=== PATIENT | female | born 1950 | race Caucasian/White ===

== ENCOUNTER 2016-12-04 12:02 | Emergency (ER) | payer MEDICARE, OTHER ==
[~2016-12-04] VITALS: Ht 157.5 cm; Wt 88.0 kg
[~2016-12-04 12:02] MED LIST: ACETAMIN-HYDROcod 325-5 MG PO; CARV3.125 PO; GABA300 PO; LEVO.025 PO; LISI10 PO; SERO50TA PO; SYMB160A INH; TENO300 PO; VALP250C PO
[2016-12-04 12:05] VITALS: BP 146/87; PULSE 92; RESP 15; TEMP 98.1; O2SAT 97
--- NOTE | 2016-12-04 14:15 | PD ---
HPI Chief Complaint: GI Complaint Time Seen by Provider: 14:15 Travel History International Travel<30 days: No Contact w/Intl Traveler<30days: No Traveled to known affect area: No History of Present Illness HPI 66-year-old female presents the emergency department with worsening right upper quadrant pain and tenderness which she states it's been present for the past month. Patient states in the last 3 days she's had increased pain with radiation to the back, nausea, vomiting, and diarrhea. Patient denies shortness of breath or chest pain. Patient states a cholecystectomy approximately one year ago for gallbladder disease. Patient states a history of hepatitis B, but denies smoking or EtOH or substance abuse. Patient denies urinary symptoms at this time. Patient has a history of hyperkalemia and CHF. Patient states her pain is a 9/10, and worse with movement. Patient states her vomiting started 3 days ago and she last vomited this morning. Patient has no known drug allergies. PFSH Past Medical History Arthritis: Yes Bipolar Disorder: Yes Anxiety: No Depression: Yes Cancer: No Cardiovascular Problems: Yes (CHF, HTN ) Congestive Heart Failure: Yes COPD: Yes Cerebrovascular Accident: Yes Diabetes: No Diminished Hearing: No Genitourinary: No Hepatitis: Yes (b) Hypertension: Yes Implanted Vascular Access Dvce: No Musculoskeletal: Yes Neurologic: No Psychiatric: Yes (bipolar) Reproductive: No Respiratory: Yes Immunizations Current: Yes Thyroid Disease: Yes (hypo) ?: Not Menopausal: Yes : 2 Para: 2 Tubal Ligation: Yes Past Surgical History Abdominal Surgery: No Cardiac Surgery: No Section: No Ear Surgery: No Endocrine Surgery: No Eye Surgery: No Genitourinary Surgery: No Gynecologic Surgery: Yes Joint Replacement: Yes Neurologic Surgery: No Oral Surgery: Yes (teeth pulled) Thoracic Surgery: No Other Surgery: Yes Social History Alcohol Use: No Tobacco Use: Yes Substance Use: No Allergies-Medications (Allergen,Severity, Reaction): Coded Allergies: No Known Allergies (Unverified , 07/20/16) Reported Meds & Prescriptions Reported Meds & Active Scripts Active Reported Spironolactone 25 Mg Tab 12.5 Mg PO DAILY Viread (Tenofovir Disoproxil Fumarate) 300 Mg Tab 300 Mg PO DAILY Bupropion HCl 75 Mg Tab 150 Mg PO BID Gabapentin 300 Mg Cap 300 Mg PO TID Lisinopril 2.5 Mg Tab 2.5 Mg PO DAILY Seroquel (Quetiapine Fumarate) 50 Mg Tab 50 Mg PO HS Valproic Acid 250 Mg Cap 250 Mg PO BID Levothyroxine (Levothyroxine Sodium) 25 Mcg Tab 25 Mcg PO DAILY Coreg (Carvedilol) 3.125 Mg Tab 3.125 Mg PO BID Review of Systems Except as stated in HPI: all other systems reviewed are Neg General / Constitutional: No: Fever, Chills Eyes: No: Visual changes HENT: No: Headaches Cardiovascular: No: Chest Pain or Discomfort Respiratory: No: Shortness of Breath Gastrointestinal: Positive: Nausea, Vomiting, Diarrhea, Abdominal Pain (see history present illness), Loss of Appetite, No: Hematemesis, Hematochezia, Constipation Genitourinary: No: Urgency, Frequency, Dysuria, Decreased Urinary Output Musculoskeletal: No: Pain Skin: No Rash Neurologic: No: Weakness Psychiatric: No: Depression Endocrine: No: Polydipsia Hematologic/Lymphatic: No: Easy Bruising Physical Exam Narrative GENERAL: Patient is in mild to moderate distress. She is noted to be ambulatory to the restroom without difficulty. SKIN: Warm and dry. Normal color. Normal turgor. No rash. HEAD: Atraumatic. Normocephalic. EYES: Pupils equal and round. No scleral icterus. No injection or drainage. ENT: No nasal bleeding or discharge. Mucous membranes pink and moist. Pharynx is normal. Airway is patent. NECK: Trachea midline. No JVD. CARDIOVASCULAR: Regular rate and rhythm. No murmurs gallops or rubs this time. RESPIRATORY: No accessory muscle use. Clear to auscultation. Breath sounds equal bilaterally. GASTROINTESTINAL: Abdomen soft, moderate guarding to the right upper quadrant with tenderness with palpation and percussion, nondistended. Hepatic and splenic margins not palpable. Patient is mild to moderate right CVA tenderness with percussion. MUSCULOSKELETAL: Extremities without clubbing, cyanosis, or edema. No obvious deformities. NEUROLOGICAL: Awake and alert. No obvious cranial nerve deficits. Motor grossly within normal limits. Five out of 5 muscle strength in the arms and legs. Normal speech. PSYCHIATRIC: Appropriate mood and affect; insight and judgment normal. Data Data Last Documented VS Vital Signs Date Time Temp Pulse Resp B/P Pulse Ox O2 Delivery O2 Flow Rate FiO2 12/04/16 17:27 78 18 152/93 100 12/04/16 14:46 Nasal Cannula 2 12/04/16 12:05 98.1 Orders Complete Blood Count With Diff (12/04/16 14:28) Comprehensive Metabolic Panel (12/04/16 14:28) Lipase (12/04/16 14:28) Lactic Acid (12/04/16 14:28) Prothrombin Time / Inr (Pt) (12/04/16 14:28) Act Partial Throm Time (Ptt) (12/04/16 14:28) Urinalysis - C+S If Indicated (12/04/16 14:28) Ct Abd/Pel W Iv Contrast(Rout) (12/04/16 14:28) Iv Access Insert/Monitor (12/04/16 14:28) Ecg Monitoring (12/04/16 14:28) Oximetry (12/04/16 14:28) NPO (12/04/16 14:28) Morphine Inj (Morphine Inj) (12/04/16 14:30) Ondansetron Inj (Zofran Inj) (12/04/16 14:30) Sodium Chlor 0.9% 1000 Ml Inj (Ns 1000 M (12/04/16 14:28) Sodium Chloride 0.9% Flush (Ns Flush) (12/04/16 14:30) Electrocardiogram (12/04/16 14:28) Hydromorphone Pf Inj (Dilaudid Pf Inj) (12/04/16 17:00) Iohexol 350 Inj (Omnipaque 350 Inj) (12/04/16 17:50) Labs Laboratory Tests Test 12/04/16 12/04/16 15:07 15:10 White Blood Count 8.7 TH/MM3 Red Blood Count 3.89 MIL/MM3 Hemoglobin 11.7 GM/DL Hematocrit 37.5 % Mean Corpuscular Volume 96.3 FL Mean Corpuscular Hemoglobin 30.1 PG Mean Corpuscular Hemoglobin 31.2 % Concent Red Cell Distribution Width 14.1 % Platelet Count 223 TH/MM3 Mean Platelet Volume 7.4 FL Neutrophils (%) (Auto) 58.3 % Lymphocytes (%) (Auto) 31.5 % Monocytes (%) (Auto) 6.8 % Eosinophils (%) (Auto) 2.9 % Basophils (%) (Auto) 0.5 % Neutrophils # (Auto) 5.1 TH/MM3 Lymphocytes # (Auto) 2.7 TH/MM3 Monocytes # (Auto) 0.6 TH/MM3 Eosinophils # (Auto) 0.3 TH/MM3 Basophils # (Auto) 0.0 TH/MM3 CBC Comment DIFF FINAL Differential Comment Prothrombin Time 10.8 SEC Prothromb Time International 1.0 RATIO Ratio Activated Partial 22.4 SEC Thromboplast Time Sodium Level 140 MEQ/L Potassium Level 4.0 MEQ/L Chloride Level 108 MEQ/L Carbon Dioxide Level 24.5 MEQ/L Anion Gap 8 MEQ/L Blood Urea Nitrogen 10 MG/DL Creatinine 0.79 MG/DL Estimat Glomerular Filtration 72 ML/MIN Rate Random Glucose 100 MG/DL Lactic Acid Level 1.2 mmol/L Calcium Level 8.7 MG/DL Total Bilirubin 0.3 MG/DL Aspartate Amino Transf 16 U/L (AST/SGOT) Alanine Aminotransferase 16 U/L (ALT/SGPT) Alkaline Phosphatase 86 U/L Total Protein 6.6 GM/DL Albumin 3.2 GM/DL Lipase 188 U/L Urine Color YELLOW Urine Turbidity CLEAR Urine pH 6.5 Urine Specific [place] 1.017 Urine Protein NEG mg/dL Urine Glucose (UA) NEG mg/dL Urine Ketones NEG mg/dL Urine Occult Blood NEG Urine Nitrite NEG Urine Bilirubin NEG Urine Urobilinogen 2.0 MG/DL Urine Leukocyte Esterase NEG Urine WBC 1 /hpf Urine Squamous Epithelial 4 /hpf Cells Microscopic Urinalysis Comment CULT NOT INDICATED MDM Medical Decision Making Medical Screen Exam Complete: Yes Emergency Medical Condition: Yes Differential Diagnosis Nausea and vomiting. Diarrhea. Colitis. Hepatitis. Biliary tract disease. Pancreatitis. Narrative Course Patient is medically stable at time of exam. Labs ordered including CBC, CMP, lipase, lactic acid, PT PTT and INR, and urinalysis. IV access is obtained, patient is given 4 mg morphine IV as well as 4 mg Zofran IV, and a normal saline bolus of [address] the abdomen and pelvis with IV contrast oral contrast is ordered. EKG is ordered showing a supraventricular rhythm with a rate of 79. Left ventricular hypertrophy and ST changes are noted, but not felt to be acute per Dr. Gordon. CBC, CMP, lipase, lactic acid, PT PTT and INR, and urinalysis are all within normal limits. CT of the abdomen is also within normal limits. Patient is evaluated with Dr. Gordon, and we feel she probably is suffering from postherpetic neuralgia from previous shingles flare. Patient is felt stable to be discharged home. She'll be given a prescription for increased gabapentin 600 mg twice a day. She is given #60. Patient is to follow with her primary care physician in the next week to ensure improvement Patient may return to emergency department if worsening symptoms develop as needed. Diagnosis Primary Impression: Neuropathic pain Additional Impression: Neuralgia, postherpetic Referrals: Primary Care Physician call for appointment Patient Instructions: General Instructions, Narcotic given in the ED Additional Instructions: Patient is evaluated with Dr. Gordon, and we feel she probably is suffering from postherpetic neuralgia from previous shingles flare. Patient is felt stable to be discharged home. She'll be given a prescription for increased gabapentin 600 mg twice a day. She is given #60. Patient is to follow with her primary care physician in the next week to ensure improvement Patient may return to emergency department if worsening symptoms develop as needed. Med/Other Pt SpecificInfo: Prescription(s) given Disposition: 01 DISCHARGE HOME Condition: Stable Mando Alves Dec 04, 2016 14:15
[2016-12-04] MEDS ORDERED: SODIUM CHLOR 0.9% 1000 ML INJ 1,000 ML IV SCH (14:28)
[2016-12-04] MEDS ORDERED: SODIUM CHLORIDE 0.9% FLUSH 5 ML FLUSH IVF PRN (14:30)
[2016-12-04] MEDS ORDERED: MORPHINE SULFATE 4 MG/ML INJ IV PUSH ONE (14:30)
[2016-12-04] MEDS ORDERED: ONDANSETRON HCL 4 MG/2 ML VIAL IVP ONE (14:30)
[2016-12-04] MEDS ORDERED: LEVO25TA4 PO (14:31)
[2016-12-04] MEDS ORDERED: BUPR75TA PO (14:31)
[2016-12-04] MEDS ORDERED: SPIR25TA PO (14:31)
[2016-12-04] MEDS ORDERED: VALP250C PO (14:31)
[2016-12-04] MEDS ORDERED: SERO50TA PO (14:31)
[2016-12-04] MEDS ORDERED: VIRE300T2 PO (14:31)
[2016-12-04] MEDS ORDERED: LISI2.5T3 PO (14:31)
[2016-12-04] MEDS ORDERED: GABA300C5 PO (14:31)
[2016-12-04] MEDS ORDERED: CARV3.125 PO (14:31)
[2016-12-04 14:46] VITALS: O2SAT 97
[2016-12-04 15:28] LABS: AUTOMATED NEUTROPHIL # 5.1 TH/MM3 (1.8-7.7); BASOPHIL % 0.5 % (0.0-2.0); EOSINOPHIL # 0.3 TH/MM3 (0-0.4); EOSINOPHIL % 2.9 % (0.0-4.0); HEMATOCRIT 37.5 % (35.0-46.0); HEMO FLAGS DIFF FINAL; LYMPH % 31.5 % (9.0-44.0); LYMPHOCYTE # 2.7 TH/MM3 (1.0-4.8); MEAN CELL VOLUME 96.3 FL (80.0-100.0); MEAN CORPUSCULAR HEMOGLOBIN 30.1 PG (27.0-34.0); MEAN CORPUSCULAR HGB CONC 31.2 % (32.0-36.0); MONO % 6.8 % (0.0-8.0); NEUT % 58.3 % (16.0-70.0); PLATELET COUNT 223 TH/MM3 (150-450); RED BLOOD COUNT 3.89 MIL/MM3 (4.00-5.30); RED CELL DISTRIBUTION WIDTH 14.1 % (11.6-17.2); WHITE BLOOD COUNT 8.7 TH/MM3 (4.0-11.0)
[2016-12-04 15:32] LABS: BLOOD, URINE NEG (NEG); COMMENT (UR) CULT NOT INDICATED; CULTURE IF INDICATED CULT NOT INDICATED; GLUCOSE,URINE NEG (NEG); KETONE, URINE NEG (NEG); NITRITE,URINE NEG (NEG); PH, URINE 6.5 (5.0-8.5); SQUAMOUS EPITHELIAL CELL URINE 4 /hpf (0-5); URINE COLOR YELLOW (YELLW/STRAW)
[2016-12-04 15:36] LABS: APTT (PATIENT) 22.4 SEC (24.3-30.1); PROTHROMBIN TIME - PATIENT 10.8 SEC (9.8-11.6)
[2016-12-04 15:48] LABS: ALT (GPT) 16 U/L (10-53); ANION GAP 8 MEQ/L (5-15); AST (GOT) 16 U/L (15-37); BICARBONATE 24.5 MEQ/L (21.0-32.0); BLOOD UREA NITROGEN 10 MG/DL (7-18); CHLORIDE 108 MEQ/L (98-107); GLOMERULAR FILTRATION RATE 72 ML/MIN (>89); SODIUM (NA) 140 MEQ/L (136-145)
[2016-12-04 15:50] LABS: ALKALINE PHOSPHATASE 86 U/L (45-117); TOTAL BILIRUBIN ADULT 0.3 MG/DL (0.2-1.0)
[2016-12-04] MEDS ORDERED: HYDROmorphone HCL PF 1 MG/ML VIAL IV PUSH ONE (17:00)
[2016-12-04 17:27] VITALS: BP 152/93; PULSE 78; RESP 18; O2SAT 100
--- NOTE | 2016-12-04 17:44 | RADRPT ---
EXAM DATE/TIME: 12/04/2016 17:14 [facility] COMPARISON: CT ABDOMEN & PELVIS W/O CONTRAST, July 20, 2016, 16:55. CT LUMBAR SPINE W/O CONTRAST, July 25, 2016, 11:10. MYELOGRAM - LUMBAR SPINE, July 25, 2016, 9:56. CT ABDOMEN & PELVIS W CONTRAS T, April 30, 2016, 14:10. INDICATIONS : Abdomen pain. IV CONTRAST: 100 cc Omnipaque 350 (iohexol) IV ORAL CONTRAST: No oral contrast ingested. RADIATION DOSE: 12.64 CTDIvol (mGy) MEDICAL HISTORY : None SURGICAL HISTORY : None. ENCOUNTER: Initial ACUITY: 1 day PAIN SCALE: 5/10 LOCATION: Bilateral abdomen. TECHNIQUE: Volumetric scanning of the abdomen and pelvis was performed. Using automated exposure control and ad justment of the mA and/or kV according to patient size, radiation dose was kept as low as reasonably achievable to obtain optimal diagnostic quality images. FINDINGS: The liver appears grossly normal. Clips are seen in the right upper quadrant from prior cholecystect alicia. The spleen, pancreas, adrenal glands and kidneys appear normal. Atherosclerotic calcifications are seen throughout the arterial system. A significant aneurysm is not appreciated. The bowel is u nremarkable. Pelvic structures appear grossly intact. The anterior abdominal wall is intact. There is degenerative and postoperative change in the lumbar spine. There does appear to be some increase d density within the lower thecal sac related to prior myelogram. 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 There is some chronic interstitial change at the lung bases. There are bilateral breast implants in place that appear to have intracapsular rupture. CONCLUSION: 1. No acute intraabdominal or pelvic abnormality. 2. Extensive degenerative and postoperative change in the lumbar spine including anterior spondyloli sthesis of L5 on S1. 3. Chronic interstitial disease at the lung bases. Sunil Short MD on December 04, 2016 at 17:32 Board Certified Radiologist. This report was verified electronically.
[2016-12-04] MEDS ORDERED: IOHEXOL 350 MG/ML 10 ML VIAL (for RAD DIAG) IV ONE (17:50)
[2016-12-04] MEDS ORDERED: GABA600T PO (18:02)
--- NOTE | 2016-12-04 18:28 | PD ---
Data Data Last Documented VS Vital Signs Date Time Temp Pulse Resp B/P Pulse Ox O2 Delivery O2 Flow Rate FiO2 12/04/16 17:27 78 18 152/93 100 12/04/16 14:46 Nasal Cannula 2 12/04/16 12:05 98.1 Orders Complete Blood Count With Diff (12/04/16 14:28) Comprehensive Metabolic Panel (12/04/16 14:28) Lipase (12/04/16 14:28) Lactic Acid (12/04/16 14:28) Prothrombin Time / Inr (Pt) (12/04/16 14:28) Act Partial Throm Time (Ptt) (12/04/16 14:28) Urinalysis - C+S If Indicated (12/04/16 14:28) Ct Abd/Pel W Iv Contrast(Rout) (12/04/16 14:28) Iv Access Insert/Monitor (12/04/16 14:28) Ecg Monitoring (12/04/16 14:28) Oximetry (12/04/16 14:28) NPO (12/04/16 14:28) Morphine Inj (Morphine Inj) (12/04/16 14:30) Ondansetron Inj (Zofran Inj) (12/04/16 14:30) Sodium Chlor 0.9% 1000 Ml Inj (Ns 1000 M (12/04/16 14:28) Sodium Chloride 0.9% Flush (Ns Flush) (12/04/16 14:30) Electrocardiogram (12/04/16 14:28) Hydromorphone Pf Inj (Dilaudid Pf Inj) (12/04/16 17:00) Iohexol 350 Inj (Omnipaque 350 Inj) (12/04/16 17:50) Labs Laboratory Tests Test 12/04/16 12/04/16 15:07 15:10 White Blood Count 8.7 TH/MM3 Red Blood Count 3.89 MIL/MM3 Hemoglobin 11.7 GM/DL Hematocrit 37.5 % Mean Corpuscular Volume 96.3 FL Mean Corpuscular Hemoglobin 30.1 PG Mean Corpuscular Hemoglobin 31.2 % Concent Red Cell Distribution Width 14.1 % Platelet Count 223 TH/MM3 Mean Platelet Volume 7.4 FL Neutrophils (%) (Auto) 58.3 % Lymphocytes (%) (Auto) 31.5 % Monocytes (%) (Auto) 6.8 % Eosinophils (%) (Auto) 2.9 % Basophils (%) (Auto) 0.5 % Neutrophils # (Auto) 5.1 TH/MM3 Lymphocytes # (Auto) 2.7 TH/MM3 Monocytes # (Auto) 0.6 TH/MM3 Eosinophils # (Auto) 0.3 TH/MM3 Basophils # (Auto) 0.0 TH/MM3 CBC Comment DIFF FINAL Differential Comment Prothrombin Time 10.8 SEC Prothromb Time International 1.0 RATIO Ratio Activated Partial 22.4 SEC Thromboplast Time Sodium Level 140 MEQ/L Potassium Level 4.0 MEQ/L Chloride Level 108 MEQ/L Carbon Dioxide Level 24.5 MEQ/L Anion Gap 8 MEQ/L Blood Urea Nitrogen 10 MG/DL Creatinine 0.79 MG/DL Estimat Glomerular Filtration 72 ML/MIN Rate Random Glucose 100 MG/DL Lactic Acid Level 1.2 mmol/L Calcium Level 8.7 MG/DL Total Bilirubin 0.3 MG/DL Aspartate Amino Transf 16 U/L (AST/SGOT) Alanine Aminotransferase 16 U/L (ALT/SGPT) Alkaline Phosphatase 86 U/L Total Protein 6.6 GM/DL Albumin 3.2 GM/DL Lipase 188 U/L Urine Color YELLOW Urine Turbidity CLEAR Urine pH 6.5 Urine Specific [place] 1.017 Urine Protein NEG mg/dL Urine Glucose (UA) NEG mg/dL Urine Ketones NEG mg/dL Urine Occult Blood NEG Urine Nitrite NEG Urine Bilirubin NEG Urine Urobilinogen 2.0 MG/DL Urine Leukocyte Esterase NEG Urine WBC 1 /hpf Urine Squamous Epithelial 4 /hpf Cells Microscopic Urinalysis Comment CULT NOT INDICATED MDM Supervised Visit with MAGNO: Yes Narrative Course The history, exam, and medical decision-making in the associated midlevel provider note were completed with my assistance. I reviewed and agree with the findings presented. I attest that I had a [id number] encounter with the patient on the same day, and personally performed and documented my assessment and findings in the medical record. *My assessment and Findings: This is a 66-year-old female who has had a cholecystectomy as well as zoster involving the right upper quadrant recently who presents to the emergency department with persistent right upper quadrant abdominal pain ever since her surgery associated with some intermittent nausea, vomiting and loose stools. She is very well-appearing, nontoxic with reassuring labs and CT scan. I'm not sure what's causing the patient's pain but it does not appear to have a surgical etiology, and she may have postherpetic neuralgia. Her symptoms seem to be alleviated by an increased dose of gabapentin. Plan for 600 twice a day of gabapentin and the patient is going to follow-up with her primary care physician later in the week. Diagnosis Primary Impression: Neuropathic pain Additional Impression: Neuralgia, postherpetic Referrals: Primary Care Physician call for appointment Patient Instructions: General Instructions, Narcotic given in the ED Additional Instruction: Patient is evaluated with Dr. Gordon, and we feel she probably is suffering from postherpetic neuralgia from previous shingles flare. Patient is felt stable to be discharged home. She'll be given a prescription for increased gabapentin 600 mg twice a day. She is given #60. Patient is to follow with her primary care physician in the next week to ensure improvement Patient may return to emergency department if worsening symptoms develop as needed. Scripts Gabapentin 600 Mg Dix480 Mg PO BID #60 TAB Ref 0 Prov:Teressa Gordon MD 12/04/16 Disposition: 01 DISCHARGE HOME Condition: Stable Teressa Gordon MD Dec 04, 2016 18:28
--- NOTE | 2016-12-05 18:56 | EKG ---
Date Performed: 12/04/2016 Time Performed: 14:43:31 PTAGE: 66 years EKG: SUPRAVENTRICULAR RHYTHM BORDERLINE LEFT AXIS DEVIATION LEFT VENTRICULAR HYPERTROPHY AND ST- T CHANGE When compared to prior tracing 1 degree AV block and PVC's continue. no significant change. ABNORMAL ECG PREVIOUS TRACING : 07/20/2016 15.57 DOCTOR: Jono Dotson Interpretating Date/Time 12/05/2016 18:55:04
== END 2016-12-04 18:50 | disposition home or self-care (01) ==
LOC: NEPE 12:02
DX: B02.29 Other postherpetic nervous system involvement (principal); R11.2 Nausea with vomiting, unspecified; R10.11 Right upper quadrant pain; I50.9 Heart failure, unspecified; I10 Essential (primary) hypertension
CPT/HCPCS: 74177; 80053; 81001; 83605; 83690; 85025; 85610; 85730; 93005; 96361; 96374; 96375; 99284; J1170; J2270; J2405; J7030; Q9967

== ENCOUNTER 2016-12-09 12:28 | Observation (INO) | payer OTHER ==
[2016-12-09] VITALS (8 sets, daily range): BP systolic 151–187; BP diastolic 79–108; PULSE 64–100; RESP 16–19; TEMP 97.5–97.9; O2SAT 92–97
[~2016-12-09] VITALS: Ht 157.5 cm; Wt 90.0 kg
[~2016-12-09 12:28] MED LIST changes: -ACETAMIN-HYDROcod 325-5 MG PO; +BUPR75TA PO; -GABA300 PO; +GABA300C5 PO; +GABA600T PO; -LEVO.025 PO; +LEVO25TA4 PO; -LISI10 PO; +LISI2.5T3 PO; +SPIR25TA PO; -SYMB160A INH; -TENO300 PO; +VIRE300T2 PO
--- NOTE | 2016-12-09 13:42 | PD ---
HPI Chief Complaint: Chest Pain Time Seen by Provider: 13:42 Travel History International Travel<30 days: No Contact w/Intl Traveler<30days: No Traveled to known affect area: No History of Present Illness HPI 66-year-old female coming in with complaints of right upper abdomen/ right lower anterior thoracic pain, as well as left arm pain since yesterday. Patient states she's felt unwell for approximately 10 days with decreased appetite. Patient has a history of CHF, shingles, cervical spondylosis, and history of DVT treated with warfarin for 6 months approximate 6 months ago. Patient has a history of irregular heartbeat for first-degree heart block. Patient is currently taking Lasix and spironolactone for her CHF. This was first treated by [facility] in [place]. Patient denies fever, chills, shortness of breath, cough, nausea, vomiting, or diarrhea. Patient has a history of hepatitis B, and has had her gallbladder out approximately a year ago. She denies changes in her bowels are urine. She describes the pain as a burning ache in her left arm as well as her right lower thorax/right upper abdomen. Patient states the pain in her left arm is worse with motion. The abdominal pain is not worsened or lessened by food. She has no edema in the lower extremities. She has no exertional dyspnea or wheezing. Patient also has a history of shingles with secondary neuropathy right flank treated with gabapentin 600 mg 3 times a day. She has no known drug allergies. PFSH Past Medical History Arthritis: Yes Bipolar Disorder: Yes Anxiety: No Depression: Yes Cancer: No Cardiovascular Problems: Yes (CHF) Congestive Heart Failure: Yes COPD: Yes Cerebrovascular Accident: Yes Diabetes: No Diminished Hearing: No Genitourinary: No Hepatitis: Yes (b) Hypertension: Yes Implanted Vascular Access Dvce: No Musculoskeletal: Yes Neurologic: No Psychiatric: Yes (bipolar) Reproductive: No Respiratory: Yes Immunizations Current: Yes Thyroid Disease: Yes (hypo) Menopausal: Yes : 2 Para: 2 Tubal Ligation: Yes Past Surgical History Abdominal Surgery: No Cardiac Surgery: No Section: No Ear Surgery: No Endocrine Surgery: No Eye Surgery: No Genitourinary Surgery: No Gynecologic Surgery: Yes Joint Replacement: Yes Neurologic Surgery: No Oral Surgery: Yes (teeth pulled) Thoracic Surgery: No Other Surgery: Yes Social History Alcohol Use: No Tobacco Use: Yes Substance Use: No Allergies-Medications (Allergen,Severity, Reaction): Coded Allergies: No Known Allergies (Unverified , 12/09/16) Reported Meds & Prescriptions Reported Meds & Active Scripts Active Reported Spironolactone 25 Mg Tab 12.5 Mg PO DAILY Viread (Tenofovir Disoproxil Fumarate) 300 Mg Tab 300 Mg PO DAILY Bupropion HCl 75 Mg Tab 150 Mg PO BID Gabapentin 300 Mg Cap 300 Mg PO TID Lisinopril 2.5 Mg Tab 2.5 Mg PO DAILY Seroquel (Quetiapine Fumarate) 50 Mg Tab 50 Mg PO HS Valproic Acid 250 Mg Cap 250 Mg PO BID Levothyroxine (Levothyroxine Sodium) 25 Mcg Tab 25 Mcg PO DAILY Coreg (Carvedilol) 3.125 Mg Tab 3.125 Mg PO BID Review of Systems Except as stated in HPI: all other systems reviewed are Neg General / Constitutional: No: Fever, Chills, Weight Gain, Weight Loss Eyes: No: Visual changes HENT: No: Headaches, Vertigo, Sore Throat, Rhinitis, Rhinorrhea, Congestion, Nosebleed, Neck Stiffness, Neck Pain, Ear Discharge, Earache Cardiovascular: Positive: Irregular Rhythm, No: Chest Pain or Discomfort, Diaphoresis (chronically see history present illness.), Dyspnea on exertion, Edema Respiratory: No: Cough, Shortness of Breath, Wheezing, Pleuritic Pain Gastrointestinal: No: Nausea, Vomiting, Diarrhea, Abdominal Pain Genitourinary: No: Dysuria Musculoskeletal: Positive: Arthralgias, Limited ROM, Pain, No: Myalgias, Edema Skin: No Rash Neurologic: No: Weakness Psychiatric: No: Depression Endocrine: No: Polydipsia Hematologic/Lymphatic: No: Easy Bruising Physical Exam Narrative GENERAL: Patient appears in mild distress. SKIN: Warm and dry. Normal color. Normal turgor. No rash. HEAD: Atraumatic. Normocephalic. EYES: Pupils equal and round. No scleral icterus. No injection or drainage. ENT: No nasal bleeding or discharge. Mucous membranes pink and moist. Pharynx is normal. Airway is patent. No significant lymphadenopathy. NECK: Trachea midline. No JVD. No bony tenderness or step-off. CARDIOVASCULAR: Irregular rate and rhythm consistent with history.. Patient has no appreciable murmur. RESPIRATORY: No accessory muscle use. Clear to auscultation. No crackles rales or rhonchi. No wheezes. Breath sounds equal bilaterally. GASTROINTESTINAL: Abdomen soft, mild nonspecific right upper quadrant tenderness , nondistended. Hepatic and splenic margins not palpable. Negative CVA tenderness. Negative McBurney's point. MUSCULOSKELETAL: Extremities without clubbing, cyanosis, or edema. No obvious deformities. NEUROLOGICAL: Awake and alert. No obvious cranial nerve deficits. Motor grossly within normal limits. Five out of 5 muscle strength in the arms and legs. Normal speech. PSYCHIATRIC: Appropriate mood and affect; insight and judgment normal. Data Data Last Documented VS Vital Signs Date Time Temp Pulse Resp B/P Pulse Ox O2 Delivery O2 Flow Rate FiO2 12/09/16 16:08 84 16 177/108 96 Room Air 12/09/16 12:31 97.8 Orders Complete Blood Count With Diff (12/09/16 13:56) Comprehensive Metabolic Panel (12/09/16 13:56) Lipase (12/09/16 13:56) Prothrombin Time / Inr (Pt) (12/09/16 13:56) Act Partial Throm Time (Ptt) (12/09/16 13:56) Urinalysis - C+S If Indicated (12/09/16 13:56) Iv Access Insert/Monitor (12/09/16 13:56) Ecg Monitoring (12/09/16 13:56) Oximetry (12/09/16 13:56) Morphine Inj (Morphine Inj) (12/09/16 14:00) Ondansetron Inj (Zofran Inj) (12/09/16 14:00) Sodium Chloride 0.9% Flush (Ns Flush) (12/09/16 14:00) B-Type Natriuretic Peptide (12/09/16 13:56) Ckmb (Isoenzyme) Profile (12/09/16 13:56) D-Dimer (12/09/16 13:56) Troponin I (12/09/16 13:56) Ct Pulmonary Angiogram (12/09/16 15:02) Hydromorphone Pf Inj (Dilaudid Pf Inj) (12/09/16 15:30) Iohexol 350 Inj (Omnipaque 350 Inj) (12/09/16 15:57) Admit Order (Ed Use Only) (12/09/16 16:09) Labs Laboratory Tests Test 12/09/16 12/09/16 14:10 14:25 White Blood Count 7.8 TH/MM3 Red Blood Count 4.31 MIL/MM3 Hemoglobin 13.7 GM/DL Hematocrit 41.4 % Mean Corpuscular Volume 96.0 FL Mean Corpuscular Hemoglobin 31.8 PG Mean Corpuscular Hemoglobin 33.1 % Concent Red Cell Distribution Width 14.2 % Platelet Count 282 TH/MM3 Mean Platelet Volume 6.9 FL Neutrophils (%) (Auto) 65.7 % Lymphocytes (%) (Auto) 25.4 % Monocytes (%) (Auto) 5.7 % Eosinophils (%) (Auto) 2.8 % Basophils (%) (Auto) 0.4 % Neutrophils # (Auto) 5.1 TH/MM3 Lymphocytes # (Auto) 2.0 TH/MM3 Monocytes # (Auto) 0.4 TH/MM3 Eosinophils # (Auto) 0.2 TH/MM3 Basophils # (Auto) 0.0 TH/MM3 CBC Comment DIFF FINAL Differential Comment Prothrombin Time 10.7 SEC Prothromb Time International 1.0 RATIO Ratio Activated Partial 25.1 SEC Thromboplast Time D-Dimer Quantitative (PE/DVT) 0.73 MG/L FEU Sodium Level 140 MEQ/L Potassium Level 4.4 MEQ/L Chloride Level 107 MEQ/L Carbon Dioxide Level 27.4 MEQ/L Anion Gap 6 MEQ/L Blood Urea Nitrogen 16 MG/DL Creatinine 0.95 MG/DL Estimat Glomerular Filtration 58 ML/MIN Rate Random Glucose 79 MG/DL Calcium Level 8.9 MG/DL Total Bilirubin 0.4 MG/DL Aspartate Amino Transf 16 U/L (AST/SGOT) Alanine Aminotransferase 17 U/L (ALT/SGPT) Alkaline Phosphatase 94 U/L Total Creatine Kinase 93 U/L Troponin I 0.03 NG/ML B-Type Natriuretic Peptide 386 PG/ML Total Protein 7.5 GM/DL Albumin 3.4 GM/DL Lipase 256 U/L Urine Color YELLOW Urine Turbidity HAZY Urine pH 6.0 Urine Specific [place] 1.019 Urine Protein NEG mg/dL Urine Glucose (UA) NEG mg/dL Urine Ketones NEG mg/dL Urine Occult Blood NEG Urine Nitrite NEG Urine Bilirubin NEG Urine Urobilinogen LESS THAN 2.0 MG/DL Urine Leukocyte Esterase NEG Urine WBC 1 /hpf Urine Squamous Epithelial 13 /hpf Cells Urine Mucus FEW /lpf Microscopic Urinalysis Comment CULT NOT INDICATED MDM Medical Decision Making Medical Screen Exam Complete: Yes Emergency Medical Condition: Yes Differential Diagnosis Neuropathy. Hepatitis. Pancreatitis. Cardiac syndrome. Pneumonia. Narrative Course Patient is felt medically stable at time of exam. EKG shows first-degree block with frequent PVCs. There are no acute ST changes. This is reviewed with Dr. Cooper. Patient discussed with Dr. Cooper. Labs ordered including CBC, CMP, lipase, cardiac panel per protocol, proBNP, and d-dimer. IV access is obtained patient is given 4 mg morphine IV as well as 4 mg Zofran IV. Labs show CBC was in normal limits. CMP is unremarkable. Lipase is 256. BNP is elevated slightly at 386. Troponin is 0.03. PTT the PT and INR are normal. However d-dimer is elevated at 0.73. Urinalysis is unremarkable. CTA is ordered to rule out PE. CTA shows no pulmonary embolism, however there is markedly cardiac calcifications per the radiologist. Patient discussed with Dr. Cooper who feels the patient should be admitted to the chest pain center to rule out cardiac issues with her pain. The patient is agreeable with this. Patient is admitted to the chest pain center per Dr. Cooper. Diagnosis Primary Impression: Chest pain radiating to arm Admitting Information Admitting Physician Requests: Observation Condition: Stable Mando Alves Dec 09, 2016 13:42
[2016-12-09] MEDS ORDERED: SODIUM CHLORIDE 0.9% FLUSH 5 ML FLUSH IVF PRN ×2 (14:00→17:45)
[2016-12-09] MEDS ORDERED: MORPHINE SULFATE 4 MG/ML INJ IV PUSH ONE (14:00)
[2016-12-09] MEDS ORDERED: ONDANSETRON HCL 4 MG/2 ML VIAL IVP ONE (14:00)
[2016-12-09 14:19] LABS: AUTOMATED NEUTROPHIL # 5.1 TH/MM3 (1.8-7.7); BASOPHIL % 0.4 % (0.0-2.0); EOSINOPHIL # 0.2 TH/MM3 (0-0.4); EOSINOPHIL % 2.8 % (0.0-4.0); HEMATOCRIT 41.4 % (35.0-46.0); HEMO FLAGS DIFF FINAL; LYMPH % 25.4 % (9.0-44.0); MEAN CORPUSCULAR HEMOGLOBIN 31.8 PG (27.0-34.0); MEAN CORPUSCULAR HGB CONC 33.1 % (32.0-36.0); MONO % 5.7 % (0.0-8.0); NEUT % 65.7 % (16.0-70.0); PLATELET COUNT 282 TH/MM3 (150-450); RED BLOOD COUNT 4.31 MIL/MM3 (4.00-5.30); RED CELL DISTRIBUTION WIDTH 14.2 % (11.6-17.2); WHITE BLOOD COUNT 7.8 TH/MM3 (4.0-11.0)
[2016-12-09 14:35] LABS: ANION GAP 6 MEQ/L (5-15); AST (GOT) 16 U/L (15-37); BICARBONATE 27.4 MEQ/L (21.0-32.0); BLOOD UREA NITROGEN 16 MG/DL (7-18); CHLORIDE 107 MEQ/L (98-107); GLOMERULAR FILTRATION RATE 58 ML/MIN (>89); POTASSIUM 4.4 MEQ/L (3.5-5.1); SODIUM (NA) 140 MEQ/L (136-145)
[2016-12-09 14:42] LABS: APTT (PATIENT) 25.1 SEC (24.3-30.1); PROTHROMBIN TIME - PATIENT 10.7 SEC (9.8-11.6)
[2016-12-09 14:45] LABS: ALKALINE PHOSPHATASE 94 U/L (45-117); ALT (GPT) 17 U/L (10-53); CREATINE KINASE 93 U/L (26-192); TOTAL BILIRUBIN ADULT 0.4 MG/DL (0.2-1.0)
[2016-12-09 14:55] LABS: BLOOD, URINE NEG (NEG); COMMENT (UR) CULT NOT INDICATED; CULTURE IF INDICATED CULT NOT INDICATED; GLUCOSE,URINE NEG (NEG); KETONE, URINE NEG (NEG); MUCUS URINE FEW /lpf (OCC); NITRITE,URINE NEG (NEG); SQUAMOUS EPITHELIAL CELL URINE 13 /hpf (0-5); URINE COLOR YELLOW (YELLW/STRAW)
[2016-12-09] MEDS ORDERED: HYDROmorphone HCL PF 1 MG/ML VIAL IV PUSH ONE (15:30)
[2016-12-09] MEDS ORDERED: IOHEXOL 350 MG/ML 10 ML VIAL (for RAD DIAG) IV ONE (15:57)
--- NOTE | 2016-12-09 16:05 | PD ---
Data Data Last Documented VS Vital Signs Date Time Temp Pulse Resp B/P Pulse Ox O2 Delivery O2 Flow Rate FiO2 12/09/16 16:08 84 16 177/108 96 Room Air 12/09/16 12:31 97.8 Orders Complete Blood Count With Diff (12/09/16 13:56) Comprehensive Metabolic Panel (12/09/16 13:56) Lipase (12/09/16 13:56) Prothrombin Time / Inr (Pt) (12/09/16 13:56) Act Partial Throm Time (Ptt) (12/09/16 13:56) Urinalysis - C+S If Indicated (12/09/16 13:56) Iv Access Insert/Monitor (12/09/16 13:56) Ecg Monitoring (12/09/16 13:56) Oximetry (12/09/16 13:56) Morphine Inj (Morphine Inj) (12/09/16 14:00) Ondansetron Inj (Zofran Inj) (12/09/16 14:00) Sodium Chloride 0.9% Flush (Ns Flush) (12/09/16 14:00) B-Type Natriuretic Peptide (12/09/16 13:56) Ckmb (Isoenzyme) Profile (12/09/16 13:56) D-Dimer (12/09/16 13:56) Troponin I (12/09/16 13:56) Ct Pulmonary Angiogram (12/09/16 15:02) Hydromorphone Pf Inj (Dilaudid Pf Inj) (12/09/16 15:30) Iohexol 350 Inj (Omnipaque 350 Inj) (12/09/16 15:57) Labs Laboratory Tests Test 12/09/16 12/09/16 14:10 14:25 White Blood Count 7.8 TH/MM3 Red Blood Count 4.31 MIL/MM3 Hemoglobin 13.7 GM/DL Hematocrit 41.4 % Mean Corpuscular Volume 96.0 FL Mean Corpuscular Hemoglobin 31.8 PG Mean Corpuscular Hemoglobin 33.1 % Concent Red Cell Distribution Width 14.2 % Platelet Count 282 TH/MM3 Mean Platelet Volume 6.9 FL Neutrophils (%) (Auto) 65.7 % Lymphocytes (%) (Auto) 25.4 % Monocytes (%) (Auto) 5.7 % Eosinophils (%) (Auto) 2.8 % Basophils (%) (Auto) 0.4 % Neutrophils # (Auto) 5.1 TH/MM3 Lymphocytes # (Auto) 2.0 TH/MM3 Monocytes # (Auto) 0.4 TH/MM3 Eosinophils # (Auto) 0.2 TH/MM3 Basophils # (Auto) 0.0 TH/MM3 CBC Comment DIFF FINAL Differential Comment Prothrombin Time 10.7 SEC Prothromb Time International 1.0 RATIO Ratio Activated Partial 25.1 SEC Thromboplast Time D-Dimer Quantitative (PE/DVT) 0.73 MG/L FEU Sodium Level 140 MEQ/L Potassium Level 4.4 MEQ/L Chloride Level 107 MEQ/L Carbon Dioxide Level 27.4 MEQ/L Anion Gap 6 MEQ/L Blood Urea Nitrogen 16 MG/DL Creatinine 0.95 MG/DL Estimat Glomerular Filtration 58 ML/MIN Rate Random Glucose 79 MG/DL Calcium Level 8.9 MG/DL Total Bilirubin 0.4 MG/DL Aspartate Amino Transf 16 U/L (AST/SGOT) Alanine Aminotransferase 17 U/L (ALT/SGPT) Alkaline Phosphatase 94 U/L Total Creatine Kinase 93 U/L Troponin I 0.03 NG/ML B-Type Natriuretic Peptide 386 PG/ML Total Protein 7.5 GM/DL Albumin 3.4 GM/DL Lipase 256 U/L Urine Color YELLOW Urine Turbidity HAZY Urine pH 6.0 Urine Specific [place] 1.019 Urine Protein NEG mg/dL Urine Glucose (UA) NEG mg/dL Urine Ketones NEG mg/dL Urine Occult Blood NEG Urine Nitrite NEG Urine Bilirubin NEG Urine Urobilinogen LESS THAN 2.0 MG/DL Urine Leukocyte Esterase NEG Urine WBC 1 /hpf Urine Squamous Epithelial 13 /hpf Cells Urine Mucus FEW /lpf Microscopic Urinalysis Comment CULT NOT INDICATED MDM Supervised Visit with MAGNO: Yes Narrative Course I, Dr. Trammell, have reviewed the advance practice practioner's documentation and am in agreement, met with the patient face to face, made the diagnosis, and the medical decision making was done by me. *My assessment and Findings: A 66-year-old female with history of CHF, hepatitis B virus, previous DVT here with complaint of one month of generally not feeling well with associated anorexia. She's had approximately one week of right sided lower chest pain/upper abdominal pain. Previous cholecystectomy. Now also left-sided shoulder pain that is worse with movement. Patient seen here approximately one week ago with negative workup and CT of the abdomen and pelvis. She does have a burning sensation in the location of her pain as well as history of shingles and is currently treated with gabapentin. Her shingles was in this right flank region. She does not have any known history of coronary artery disease that she knows of, but does have a history of " irregular heartbeat". Patient insists that this is different from her post herpetic neuralgia, stating "it feels like something is moving around inside of me like when you're ". Patient's examination reveals reproducible right inframammary chest wall pain. She has scars of the right abdominal wall from previous shingles but no evidence of new lesions. She does not have any reproducible abdominal pain. Regular rate and rhythm, lungs are clear. Twelve-lead EKG shows sinus rhythm with first-degree AV block, frequent PVCs. Left axis deviation with LVH. Laboratory workup unremarkable except for slightly elevated d-dimer. CT pulmonary angiogram showed negative for PE but extensive coronary vascular disease. She does not remember the last time she had a stress test. Patient will be admitted for serial cardiac enzymes and provocative testing. Condition: Stable Hortencia Trammell MD Dec 09, 2016 16:05
--- NOTE | 2016-12-09 16:07 | RADRPT ---
EXAM DATE/TIME: 12/09/2016 15:36 [facility] COMPARISON: CT PULMONARY ANGIOGRAM, July 06, 2016, 21:41. CHEST SINGLE AP, December 09, 2016, 14:31. INDICATIONS : Chest pain with shortness of breath. IV CONTRAST: 50 cc Omnipaque 350 (iohexol) IV RADIATION DOSE: 19.28 CTDIvol (mGy) MEDICAL HISTORY : Hypertension. Chronic obstructive pulmonary disease. Spinal stenosis. SURGICAL HISTORY : Spinal and shoulder surgery ENCOUNTER: Initial ACUITY: 1 month PAIN SCALE: 4/10 LOCATION: Right chest TECHNIQUE: Volumetric scanning of the chest was performed using a pulmonary embolism protocol MIP images were re constructed. Using automated exposure control and adjustment of the mA and/or kV according to patien t size, radiation dose was kept as low as reasonably achievable to obtain optimal diagnostic quality images. FINDINGS: PULMONARY ARTERIES: No filling defects are seen in the pulmonary arteries through the segmental level. LUNGS: There is no consolidation or pneumothorax . No concerning pulmonary nodule is visualized. Peripheral interstitial lung disease. PLEURAE: There is no pleural thickening or pleural effusion. MEDIASTINUM: There is left ventricular cardiomegaly with atherosclerotic cardiovascular disease and coronary calci fications. MUSCULOSKELETAL: Within normal limits for patient age. MISCELLANEOUS: The visualized upper abdominal organs demonstrate no acute abnormality. CONCLUSION: No evidence of pulmonary embolization. Stable CT pulmonary angiogram with mild peripheral in terstitial lung disease and extensive atherosclerotic cardiovascular disease with compensated cardiom egaly. Dao Sepulveda MD on December 09, 2016 at 16:01 Board Certified Radiologist. This report was verified electronically.
[2016-12-09] MEDS ORDERED: BUPR150T5 PO (17:20)
[2016-12-09] MEDS ORDERED: LISI10TA3 PO (17:20)
[2016-12-09] MEDS ORDERED: LISI2.5T3 PO (17:22)
[2016-12-09] MEDS ORDERED: TOPA50TA7 PO (17:23)
[2016-12-09] MEDS ORDERED: TRAZ50TA12 PO (17:23)
[2016-12-09] MEDS ORDERED: ACETAMINOPHEN 500 MG CPLT PO PRN (17:45)
[2016-12-09] MEDS ORDERED: cloNIDine HCL 0.1 MG TAB PO PRN (17:45)
[2016-12-09] MEDS ORDERED: ALPRAZolam 0.25 MG TAB PO PRN (17:45)
[2016-12-09] MEDS ORDERED: ONDANSETRON HCL 4 MG/2 ML VIAL IV PRN (17:45)
[2016-12-09] MEDS ORDERED: RESP: ALBUTEROL 2.5 MG/IPRATROPIUM 0.5 MG NEB (PRN) INH (17:45)
[2016-12-09] MEDS: GABAPENTIN 300 MG CAP PO SCH (18:20)
[2016-12-09] MEDS ORDERED: amLODIPine BESYLATE 5 MG TAB PO ONE (18:30)
[2016-12-09] MEDS: ACETAMINOPHEN/HYDROcodone 325 MG/7.5 MG TAB PO PRN (20:55)
[2016-12-09] MEDS: SODIUM CHLORIDE 0.9% FLUSH 5 ML FLUSH IVF SCH (20:55)
[2016-12-09] MEDS: CARVEDILOL 3.125 MG TAB PO SCH (20:55)
[2016-12-09] MEDS: buPROPion HCL 150 MG SUSTAINED RELEASE TAB PO SCH (20:55)
[2016-12-09] MEDS ORDERED: QUEtiapine FUMARATE 25 MG TAB PO SCH (21:00)
[2016-12-10] VITALS: PULSE 75
[2016-12-10 04:17] VITALS: BP 125/76; PULSE 67; RESP 20; TEMP 98; O2SAT 94
[2016-12-10] MEDS ORDERED: LEVOTHYROXINE SODIUM 25 MCG TAB PO SCH (06:00)
[2016-12-10] MEDS: ACETAMINOPHEN/HYDROcodone 325 MG/7.5 MG TAB PO PRN (06:20)
[2016-12-10 07:53] VITALS: PULSE 63
[2016-12-10 08:16] VITALS: O2SAT 96
[2016-12-10 08:26] VITALS: BP 163/86; PULSE 74; RESP 17; O2SAT 94
[2016-12-10] MEDS ORDERED: LISINOPRIL 10 MG TAB PO SCH (09:00)
[2016-12-10] MEDS ORDERED: ASPIRIN 325 MG TAB PO SCH (09:00)
[2016-12-10] MEDS ORDERED: VALPROIC ACID 250 MG CAP PO SCH (09:00)
[2016-12-10] MEDS ORDERED: TENOFOVIR DISOPROXIL FUMARATE 300 MG TAB PO SCH (09:00)
[2016-12-10] MEDS: GABAPENTIN 300 MG CAP PO SCH ×2 (09:52→13:36)
[2016-12-10] MEDS: SODIUM CHLORIDE 0.9% FLUSH 5 ML FLUSH IVF SCH (09:52)
[2016-12-10] MEDS: buPROPion HCL 150 MG SUSTAINED RELEASE TAB PO SCH (09:52)
[2016-12-10] MEDS ORDERED: REGADENOSON INJ 0.4 MG/5 ML SYR ONE (12:08)
--- NOTE | 2016-12-10 12:22 | EKG ---
Date Performed: 12/09/2016 Time Performed: 13:37:14 PTAGE: 66 years EKG: Sinus rhythm WITH FIRST DEGREE AV BLOCK WITH FREQUENT VENTRICULAR PREMATURE COMPLEXES POSSIBLE LEFT ATRIAL ENLARG EMENT MARKED LEFT AXIS DEVIATION LEFT VENTRICULAR HYPERTROPHY AND ST-T CHANGE ABNORMAL ECG PREVIOUS TRACING : 12/04/2016 14.43 DOCTOR: Ahmet Woods Interpretating Date/Time 12/10/2016 12:21:47
--- NOTE | 2016-12-10 12:34 | EKG ---
Date Performed: 12/09/2016 Time Performed: 17:44:20 PTAGE: 66 years EKG: SINUS TACHYCARDIA WITH OCCASSIONAL PACs BORDERLINE LEFT AXIS DEVIATION LEFT VENTRICULAR HYP ERTROPHY AND ST-T CHANGE ABNORMAL ECG PREVIOUS TRACING : 12/09/2016 13.37 DOCTOR: Ahmet Woods Interpretating Date/Time 12/10/2016 12:33:33
--- NOTE | 2016-12-10 12:42 | EKG ---
Date Performed: 12/09/2016 Time Performed: 20:51:50 PTAGE: 66 years EKG: Sinus rhythm WITH FIRST DEGREE AV BLOCK MARKED LEFT AXIS DEVIATION LEFT VENTRICULAR HYPERTROPHY AND ST-T CHANGE L EFT ATRIAL ENLARGEMENT ABNORMAL EKG PREVIOUS TRACING : 12/09/2016 17.44 DOCTOR: Ahmet Woods Interpretating Date/Time 12/10/2016 12:40:25
[2016-12-10] MEDS: CARVEDILOL 3.125 MG TAB PO SCH (13:36)
--- NOTE | 2016-12-10 14:10 | RADRPT ---
EXAM DATE/TIME: 12/10/2016 11:19 [facility] COMPARISON: No previous studies available for comparison. INDICATIONS : Right upper abdominal and right lower anterior thoracic pain along with left arm pain. Angina. DOSE: 27.3 mCi Tc99m Myoview at stress. 8.7 mCi Tc99m Myoview at rest. 0.4 mg Lexiscan STRESS SYMPTOMS: Heart racing and headache. EJECTION FRACTION: 25% MEDICAL HISTORY : Hypothyroidism. Chronic obstructive pulmonary disease. Congestive heart failure. Hypertension, cerebr ovascular accident and Hepatitis B. SURGICAL HISTORY : Tubal ligation. Cholecystectomy. Rotator cuff, right. Bilateral total knee replacement and L4-L5 repa ir. ENCOUNTER: Initial ACUITY: 2 weeks PAIN SCALE: 6/10 LOCATION: anterior abdomen. TECHNIQUE: The patient underwent pharmacologic stress with infusion of prescribed dose. Continuous ECG tracing was monitored during stress. Gated SPECT imaging was performed after stress and conventional SPECT i maging was performed at rest. The examination was performed on a SPECT/CT scanner, both attenuation and non-corrected datasets were reviewed. FINDINGS: DISTRIBUTION: The maximum perfused segment at stress is in the septal wall. PERFUSION STUDY: There is focal diminished uptake at the apex which remains fixed on the rest images. Otherwise there is perfusion to the rest of the ventricle. GATED STUDY: Diffuse global hypokinesis. CONCLUSION: 1. 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 2. No evidence to suggest ischemic myocardial changes at this time. 3. Diffuse global hypokinesis with an ejection fraction of 25%. RISK CATEGORY: Low Riky Vazquez MD on December 10, 2016 at 14:06 Board Certified Radiologist. This report was verified electronically.
[2016-12-10 14:57] VITALS: BP 138/87; PULSE 75; RESP 17; TEMP 98; O2SAT 94
--- NOTE | 2016-12-10 15:56 | HHI.DCPOC ---
Discharge Care Plan Diagnosis: (1) Post herpetic neuralgia (2) Hypertension (3) Chest pain, atypical Goals to Promote Your Health * To prevent worsening of your condition and complications * To maintain your health at the optimal level Directions to Meet Your Goals Take your medications as prescribed Follow your dietary instruction Follow activity as directed Keep your appointments as scheduled Take your immunizations and boosters as scheduled If your symptoms worsen call your PCP, if no PCP go to Urgent Care Center or Emergency Room Smoking is Dangerous to Your Health. Avoid second hand smoke Call the 24-hour hour crisis hotline for domestic abuse at [place] Dec 10, 2016 15:56
[2016-12-10] MEDS ORDERED: LEVO25TA4 PO ×2 (16:00→16:01)
[2016-12-10] MEDS ORDERED: LISI-515 PO (16:00)
[2016-12-10] MEDS ORDERED: CARV6.25 PO (16:00)
[2016-12-10] MEDS ORDERED: SPIR25TA PO ×2 (16:00→16:01)
--- NOTE | 2016-12-11 12:46 | MH ---
cc: ADRIAN CHAUDHRY DATE OF ADMISSION: 12/09/2016 DATE OF : 06/07/1942 CHIEF COMPLAINT Right upper abdominal pain. HISTORY OF PRESENT ILLNESS This is a 66-year-old female that presented to the ED complaining of a sore area that has been present for several months in the right upper abdominal region. She states she has had it for 6-8 months and was told that it is related to postherpetic neuralgia and was taking Neurontin for it and at first it was working but has not been working the last few months. While in [place] last month, she had an evaluation for this and states really no changes were made to her medical management. Denies any nausea, vomiting or diarrhea. Denies shortness breath or diaphoresis with these symptoms. She states that she was told that she had some heart issues and states that it was heart failure. She states she ran out of the spirolactone and was also taking Lasix but cannot recall the doses of either. Her primary care physician in this area is Dr. Garcia. She was seen in this hospital June/July of last year and was seen in consultation by Dr. Smith for congestive heart failure and noted apparently there was a discussion with him and the patient about a nonischemic cardiomyopathy with stated history of a heart catheterization with normal arteries in [place], [place] end of 2014. Medical management was utilized and she was followed by Dr. Smith. She states she never followed up with Dr. Smith and ended up going back to [place] and then in [place] and only recently made it back here about two months ago. She also complains of a numbness/tingling sensation of the left arm. She has had this sporadically for quite sometime. When asked what brought her in today when she has had these discomforts for months she states she just got tired of dealing with it. Denies recent illness. Denies fevers or chills. PAST MEDICAL HISTORY 1. Reported history a nonischemic cardiomyopathy. An echo done June, showed an EF of 20-25%. 2. Hypertension. 3. Hypothyroidism. 4. Chronic obstructive pulmonary disease. 5. Hepatitis B. 6. Denies hyperlipidemia. 7. History of postherpetic neuralgia. 8. Bipolar disorder. 9. Denies diabetes. 10. Denies CAD but states she has a history of CHF. FAMILY HISTORY Positive for CAD. SOCIAL HISTORY She denies tobacco abuse. Denies alcohol or illicit drugs. PAST SURGICAL HISTORY Reported history of heart catheterization. She states that she believes she was told that her arteries are normal and can state for sure that she had no stents. ALLERGIES NO KNOWN DRUG ALLERGIES. MEDICATIONS Medications are being verified by a director of pharmacy and will be continued when these are confirmed, but she does know some of them which include - 1. Lisinopril. 2. Lasix. 3. Spirolactone, which she ran out of. 4. Carvedilol. 5. Valproic acid. 6. Seroquel. 7. Gabapentin. 8. Levothyroxine. REVIEW OF SYSTEMS GENERAL: Denies fevers or chills. Denies recent illness. HEENT: Denies headache, earache, sore throat or difficulty swallowing. CARDIOVASCULAR: Describes the discomfort as mentioned above. Denies diaphoresis. Denies sensation of heart beating rapidly or irregularly. Denies syncope. RESPIRATORY: Denies shortness breath or inspirational chest discomfort. Denies coughing, wheezing or hemoptysis. GASTROINTESTINAL: Denies nausea or vomiting. She complains of right upper abdominal discomfort. States she has had this for months. Denies diarrhea, constipation or blood in the stool. MUSCULOSKELETAL: Denies joint pain or edema. Denies calf pain or edema. NEUROLOGIC: Denies headache or dizziness. ENDOCRINE: Denies polyuria or polydipsia. HEMATOLOGIC: Denies easy bruising. SKIN: Denies rash or itching. PHYSICAL EXAMINATION VITAL SIGNS: Vital signs in the emergency department initially included a blood pressure of 162/101, heart rate 64, respiration was 16, pulse oximetry 95% on room air and she was afebrile. Most recent vital signs include a blood pressure of 177/108, heart rate 84, respiration was 16, pulse oximetry 96% on room air. GENERAL: The patient is seen in the examination room in no apparent stress. The patient is pleasant. She speaks in clear and complete sentences. HEENT: Head is atraumatic and normocephalic. NECK: Supple without lymphadenopathy and trachea is midline. No JVD or carotid bruits. CARDIOVASCULAR: Regular rate and rhythm without gallop or rub. There is a grade 2 systolic murmur left sternal border also on the right sternal border but not radiating to the neck. GASTROINTESTINAL: Abdomen is nontender, nondistended. Bowel sounds normal. No guarding or rebound. There is a discomfort when palpating the lower right rib area and into the upper abdomen region, this is the chronic pain she has had for months. Abdomen is soft. There is no guarding. Normal bowel sounds in all quadrants. MUSCULOSKELETAL: The patient moving upper and lower extremities freely. No joint tenderness or edema. No calf tenderness or edema, no Иван's sign. Strong pulses in upper and lower extremities. NEUROLOGIC: The patient is alert and oriented. Cranial nerves II through XII are grossly intact. No focal deficits. Speech is clear. SKIN: No rash and turgor is normal. LABORATORY DATA CBC is unremarkable. Coagulation studies have a D-dimer elevated at 0.73. CMP essentially unremarkable. GFR is decreased somewhat at 58. Lipase normal at 256. BNP is mildly elevated at 386. Troponin is normal at 0.03. IMAGING A CT pulmonary angiogram obtained through the ER and read by the radiologist as no evidence of pulmonary embolization. It also mentioned stable CT pulmonary exam with mild peripheral interstitial lung disease and extensive atherosclerotic cardiovascular disease with compensated cardiomegaly. Initial EKG has sinus rhythm rate of 75 with frequent PVCs. Nonspecific lateral T-wave changes. First-degree AV block. ASSESSMENT 1. Atypical chest pain: The patient will spend the [facility] to further rule out with serial cardiac enzymes and EKGs. They are trying to obtain records, heart catheterization and most recent cardiac consultation from the [facility] in [place]. If she truly had a heart catheterization in 2014 that had normal coronaries, then the patient will likely not need any further cardiac testing but if not that situation then probably will need to have a stress test in the morning. 2. History of postherpetic neuralgia: We will continue gabapentin. She will need to followup with a primary care physician. 3. Hypertension: The patient's blood pressure has been elevated. She states she took her lisinopril this morning. We will also add p.r.n. Catapres. We will try amlodipine as well. Continue to monitor. 4. Bipolar disorder. Continue current medication. 5. As stated a history of nonischemic cardiomyopathy: We will try to ascertain more records to confirm or refute this. 6. Hypothyroidism: We will continue current medication. We will get a TSH. The patient is stable at this time. She agreeable to this plan. Dictated by JOSE Ewing MD BART Loza/ANUP /5:05 PM /12:45 PM
--- NOTE | 2016-12-12 09:18 | RADRPT ---
EXAM DATE/TIME: 12/09/2016 14:31 [facility] COMPARISON: CHEST SINGLE AP, July 20, 2016, 13:59. INDICATIONS : Chest pain under right breast and in left arm. MEDICAL HISTORY : Hypertension. H/O shingles.Cardiovascular disease. Chronic obstructive pulmonary disease. Conge stive SURGICAL HISTORY : Tubal ligation. Lumbar surgery. ENCOUNTER: Initial ACUITY: 3 weeks PAIN SCORE: 6/10 LOCATION: Bilateral chest FINDINGS: Again appreciated is left ventricular cardiomegaly compensated and scoliosis of the thoracic spine to the right.i right humeral head is noted in place there CONCLUSION: No acute disease. No significant change has occurred. Dao Sepulveda MD on December 09, 2016 at 15:09 Board Certified Radiologist. This report was verified electronically.
--- NOTE | 2016-12-12 13:45 | TR ---
Date Performed: 12/10/2016 Time Performed: 11:54:37 DOCTOR: Vitaly Salazar DRUG LIST: CLINICAL HISTORY: CHEST PAIN REASON FOR TEST: CHEST PAIN REASON FOR ENDING: OBSERVATION: CONCLUSION: Lexiscan stress test was performed under standard four minute protocol. Radionuclid e was injected one minute prior to ending the test. No electrocardiographic abormalities were present to suggest ischemia. Nuclear imaging and interpretation are pending. COMMENTS:
== END 2016-12-10 18:31 | disposition home or self-care (01) ==
LOC: NEPE 12:28 → NEDA 16:10 → NEPHCDU 18:50
PROVIDERS: ADMIT Internal Medicine Cardiovascular Disease; ATTEND Internal Medicine Cardiovascular Disease
DX: R07.9 Chest pain, unspecified (principal); B02.29 Other postherpetic nervous system involvement; I10 Essential (primary) hypertension; I50.9 Heart failure, unspecified; I44.0 Atrioventricular block, first degree; J44.9 Chronic obstructive pulmonary disease, unspecified; E03.9 Hypothyroidism, unspecified; F31.9 Bipolar disorder, unspecified; Z72.0 Tobacco use; Z86.718 Personal history of other venous thrombosis and embolism; Z86.73 Personal history of transient ischemic attack (TIA), and cerebral infarction without residual deficits; Z90.49 Acquired absence of other specified parts of digestive tract; Z96.653 Presence of artificial knee joint, bilateral
CPT/HCPCS: 71010; 71275; 78452; 80053; 81001; 82550; 83690; 83880; 84443; 84484; 85025; 85379; 85610; 85730; 93005; 93017; 96374; 96375; 99285; A9502; G0378; J1170; J2270; J2405; J2785; Q9967

== ENCOUNTER 2016-12-16 11:27 | Observation (INO) | payer OTHER ==
[2016-12-16] VITALS (10 sets, daily range): BP systolic 68–140; BP diastolic 46–94; PULSE 69–128; RESP 16–20; O2SAT 93–97
[~2016-12-16 11:27] MED LIST changes: +BUPR150T5 PO; -BUPR75TA PO; -CARV3.125 PO; +CARV6.25 PO; -GABA600T PO; +LISI-515 PO; -LISI2.5T3 PO
[2016-12-16] MEDS ORDERED: SODIUM CHLOR 0.9% 1000 ML INJ 1,000 ML IV ONE (11:36)
[2016-12-16] MEDS ORDERED: ONDANSETRON HCL 4 MG/2 ML VIAL IVP ONE (11:45)
[2016-12-16 12:08] LABS: AUTOMATED NEUTROPHIL # 4.9 TH/MM3 (1.8-7.7); BASOPHIL # 0.1 TH/MM3 (0-0.2); EOSINOPHIL # 0.2 TH/MM3 (0-0.4); HEMATOCRIT 39.6 % (35.0-46.0); HEMO FLAGS DIFF FINAL; MEAN CELL VOLUME 95.3 FL (80.0-100.0); MEAN CORPUSCULAR HEMOGLOBIN 31.9 PG (27.0-34.0); MEAN CORPUSCULAR HGB CONC 33.4 % (32.0-36.0); MONO % 6.4 % (0.0-8.0); NEUT % 64.6 % (16.0-70.0); PLATELET COUNT 239 TH/MM3 (150-450); RED BLOOD COUNT 4.16 MIL/MM3 (4.00-5.30); RED CELL DISTRIBUTION WIDTH 13.7 % (11.6-17.2); WHITE BLOOD COUNT 7.6 TH/MM3 (4.0-11.0)
--- NOTE | 2016-12-16 12:08 | PD ---
HPI Chief Complaint: Syncope/Near-Syncope Time Seen by Provider: 11:36 Travel History International Travel<30 days: No Contact w/Intl Traveler<30days: No Traveled to known affect area: No History of Present Illness HPI The patient is a 66-year-old female who presents emergency department with multiple complaints. Patient notes an intermittent history of right sided chest pain which is worse with palpation as well as inspiration. The patient also complains of a chronic dry nonproductive cough. The patient states she was at a bus stop earlier today, which she developed blurry vision of the right eye, increasing right sided chest pain, that was followed nausea and vomiting. The patient then complained of right upper quadrant abdominal pain with nausea and vomiting. The patient has a history of previous cholecystectomy. The patient also has a history of shingles in the similar area, however, states that shingles pain is quite different from her current pain. Patient also has a history of pulmonary embolism and was on Coumadin from July 2015 of December 2015. She is no longer taking Coumadin. The patient does complain of mild shortness of breath with a right sided chest pain. Patient states avoid vision has improved slightly and she is able to see out of the right eye. The patient also noted presyncopal symptoms at the bus stop, however, did not lose consciousness. The patient's symptoms are moderate, there are no known alleviating or exacerbating factors. PFSH Past Medical History Arthritis: Yes Bipolar Disorder: Yes Anxiety: No Depression: Yes Cancer: No Cardiovascular Problems: Yes (CHF) Congestive Heart Failure: Yes COPD: Yes Cerebrovascular Accident: Yes Diabetes: No Diminished Hearing: No Genitourinary: No Hepatitis: Yes (b) Hypertension: Yes Implanted Vascular Access Dvce: No Musculoskeletal: Yes (SPINAL STENOSIS) Neurologic: No Psychiatric: Yes (bipolar) Reproductive: No Respiratory: Yes Integumentary: Yes (SHINGLES) Immunizations Current: Yes Thyroid Disease: Yes (hypo) Menopausal: Yes : 2 Para: 2 Tubal Ligation: Yes Past Surgical History Abdominal Surgery: No Cardiac Surgery: No Section: No Ear Surgery: No Endocrine Surgery: No Eye Surgery: No Genitourinary Surgery: No Gynecologic Surgery: Yes Joint Replacement: Yes Neurologic Surgery: No Oral Surgery: Yes (teeth pulled) Thoracic Surgery: No Other Surgery: Yes (BILATERAL KNEE AND SHOULDER SURGERIES) Family History Family Myocardial Infarction: Yes (FATHER AT 72) Social History Alcohol Use: No Tobacco Use: No Substance Use: No Allergies-Medications (Allergen,Severity, Reaction): Coded Allergies: No Known Allergies (Unverified , 12/09/16) Reported Meds & Prescriptions Reported Meds & Active Scripts Active Spironolactone 25 Mg Tab 25 Mg PO DAILY Levothyroxine (Levothyroxine Sodium) 25 Mcg Tab 25 Mcg PO DAILY Coreg (Carvedilol) 6.25 Mg Tab 6.25 Mg PO BID Lisinopril 20 Mg Tab 20 Mg PO DAILY Reported Bupropion HCl ER 12 HR (Bupropion HCl) 150 Mg Tab 150 Mg PO BID Viread (Tenofovir Disoproxil Fumarate) 300 Mg Tab 300 Mg PO DAILY Gabapentin 300 Mg Cap 600 Mg PO TID Seroquel (Quetiapine Fumarate) 50 Mg Tab 50 Mg PO HS Valproic Acid 250 Mg Cap 500 Mg PO DAILY Review of Systems Except as stated in HPI: all other systems reviewed are Neg General / Constitutional: No: Fever Eyes: Positive: Blurred Vision HENT: Positive: Lightheadedness Cardiovascular: Positive: Chest Pain or Discomfort Respiratory: Positive: Cough, Shortness of Breath Gastrointestinal: Positive: Nausea, Vomiting, Abdominal Pain Musculoskeletal: Positive: Weakness Neurologic: Positive: Weakness, Dizziness, Headache, No: Focal Abnormalities, Change in Mentation, Slurred Speech, Paresthesia, Sensory Disturbance Physical Exam Narrative GENERAL: Awake, alert, pleasant 66-year-old female who appears her stated age and is in no acute respiratory distress. Patient does appear somewhat anxious. SKIN: Warm and dry. HEAD: Atraumatic. Normocephalic. EYES: Pupils equal and round. 3 mm bilateral and reactive. EOMs are intact. The patient is able to see fingers out of the right eye at a distance of 2 feet. ENT: No nasal bleeding or discharge. Mucous membranes pink and moist. NECK: Trachea midline. No JVD. CARDIOVASCULAR: Regular rate and rhythm. No murmur appreciated. Heart rate in the 70s. RESPIRATORY: No accessory muscle use. Clear to auscultation. Breath sounds equal bilaterally. GASTROINTESTINAL: Abdomen soft, mild tenderness in the right upper quadrant and right flank. No rebound tenderness. MUSCULOSKELETAL: No obvious deformities. No clubbing. No cyanosis. No edema. NEUROLOGICAL: Awake and alert. No obvious cranial nerve deficits. Motor grossly within normal limits. Normal speech. PSYCHIATRIC: Appropriate mood and affect; insight and judgment normal. Data Data Last Documented VS Vital Signs Date Time Temp Pulse Resp B/P Pulse Ox O2 Delivery O2 Flow Rate FiO2 12/16/16 11:30 76 16 140/82 93 Orders Electrocardiogram (12/16/16 11:36) Complete Blood Count With Diff (12/16/16 11:36) Comprehensive Metabolic Panel (12/16/16 11:36) Magnesium (Mg) (12/16/16 11:36) B-Type Natriuretic Peptide (12/16/16 11:36) Ckmb (Isoenzyme) Profile (12/16/16 11:36) Troponin I (12/16/16 11:36) Act Partial Throm Time (Ptt) (12/16/16 11:36) Prothrombin Time / Inr (Pt) (12/16/16 11:36) Urinalysis - C+S If Indicated (12/16/16 11:36) Chest, Single Ap (12/16/16 11:36) Ct Brain W/O Iv Contrast(Rout) (12/16/16 11:36) Ecg Monitoring (12/16/16 11:36) Iv Access Insert/Monitor (12/16/16 11:36) Oximetry (12/16/16 11:36) Ondansetron Inj (Zofran Inj) (12/16/16 11:45) Sodium Chloride 0.9% Flush (Ns Flush) (12/16/16 11:45) Sodium Chlor 0.9% 1000 Ml Inj (Ns 1000 M (12/16/16 11:36) Orthostatic Vital Signs (12/16/16 11:36) Potassium Chloride (Kcl) (12/16/16 13:30) Potassium Chlor 20 Meq Premix (Kcl 20 Me (12/16/16 13:30) Aspirin Chew (Aspirin Chew) (12/16/16 14:00) Labs Laboratory Tests Test 12/16/16 12/16/16 11:53 12:00 White Blood Count 7.6 TH/MM3 Red Blood Count 4.16 MIL/MM3 Hemoglobin 13.2 GM/DL Hematocrit 39.6 % Mean Corpuscular Volume 95.3 FL Mean Corpuscular Hemoglobin 31.9 PG Mean Corpuscular Hemoglobin 33.4 % Concent Red Cell Distribution Width 13.7 % Platelet Count 239 TH/MM3 Mean Platelet Volume 7.3 FL Neutrophils (%) (Auto) 64.6 % Lymphocytes (%) (Auto) 26.0 % Monocytes (%) (Auto) 6.4 % Eosinophils (%) (Auto) 2.0 % Basophils (%) (Auto) 1.0 % Neutrophils # (Auto) 4.9 TH/MM3 Lymphocytes # (Auto) 2.0 TH/MM3 Monocytes # (Auto) 0.5 TH/MM3 Eosinophils # (Auto) 0.2 TH/MM3 Basophils # (Auto) 0.1 TH/MM3 CBC Comment DIFF FINAL Differential Comment Sodium Level 147 MEQ/L Potassium Level 2.5 MEQ/L Chloride Level 120 MEQ/L Carbon Dioxide Level 20.8 MEQ/L Anion Gap 6 MEQ/L Blood Urea Nitrogen 7 MG/DL Creatinine 0.70 MG/DL Estimat Glomerular Filtration 83 ML/MIN Rate Random Glucose 100 MG/DL Calcium Level 5.7 MG/DL Protein Corrected Calcium 7.0 MG/DL Magnesium Level 0.9 MG/DL Total Bilirubin 0.3 MG/DL Aspartate Amino Transf 12 U/L (AST/SGOT) Alanine Aminotransferase 14 U/L (ALT/SGPT) Alkaline Phosphatase 57 U/L Total Creatine Kinase 44 U/L Troponin I 0.04 NG/ML Total Protein 4.2 GM/DL Albumin 2.1 GM/DL B-Type Natriuretic Peptide 765 PG/ML MDM Medical Decision Making Medical Screen Exam Complete: Yes Emergency Medical Condition: Yes Medical Record Reviewed: Yes Interpretation(s) Laboratory Tests Test 12/16/16 12/16/16 11:53 12:00 White Blood Count 7.6 TH/MM3 Red Blood Count 4.16 MIL/MM3 Hemoglobin 13.2 GM/DL Hematocrit 39.6 % Mean Corpuscular Volume 95.3 FL Mean Corpuscular Hemoglobin 31.9 PG Mean Corpuscular Hemoglobin 33.4 % Concent Red Cell Distribution Width 13.7 % Platelet Count 239 TH/MM3 Mean Platelet Volume 7.3 FL Neutrophils (%) (Auto) 64.6 % Lymphocytes (%) (Auto) 26.0 % Monocytes (%) (Auto) 6.4 % Eosinophils (%) (Auto) 2.0 % Basophils (%) (Auto) 1.0 % Neutrophils # (Auto) 4.9 TH/MM3 Lymphocytes # (Auto) 2.0 TH/MM3 Monocytes # (Auto) 0.5 TH/MM3 Eosinophils # (Auto) 0.2 TH/MM3 Basophils # (Auto) 0.1 TH/MM3 CBC Comment DIFF FINAL Differential Comment Sodium Level 147 MEQ/L Potassium Level 2.5 MEQ/L Chloride Level 120 MEQ/L Carbon Dioxide Level 20.8 MEQ/L Anion Gap 6 MEQ/L Blood Urea Nitrogen 7 MG/DL Creatinine 0.70 MG/DL Estimat Glomerular Filtration 83 ML/MIN Rate Random Glucose 100 MG/DL Calcium Level 5.7 MG/DL Protein Corrected Calcium 7.0 MG/DL Magnesium Level 0.9 MG/DL Total Bilirubin 0.3 MG/DL Aspartate Amino Transf 12 U/L (AST/SGOT) Alanine Aminotransferase 14 U/L (ALT/SGPT) Alkaline Phosphatase 57 U/L Total Creatine Kinase 44 U/L Troponin I 0.04 NG/ML Total Protein 4.2 GM/DL Albumin 2.1 GM/DL B-Type Natriuretic Peptide 765 PG/ML Last Impressions Head CT 12/16/16 1136 Signed Impressions: Service Date/Time: Friday, December 16, 2016 13:27 - CONCLUSION: Cerebellar atrophic changes. Symmetric hypodensities in the globus pallidus which may represent prominent perivascular spaces. Old ischemic disease may also have the same appearance. No evidence of acute infarct, hemorrhage, mass or edema. Paresh Drake MD Chest X-Ray 12/16/16 1136 Signed Impressions: Service Date/Time: Friday, December 16, 2016 11:59 - CONCLUSION: Moderate cardiac silhouette enlargement. No other acute cardiopulmonary disease identified. Octavio Gurrola MD Differential Diagnosis Differential diagnosis includes pulmonary embolism, acute coronary syndrome, pleural effusion, retained biliary stone, shingles, near syncope, CVA, dissection, anxiety. Narrative Course IV was established, labs were drawn and sent, and the patient was placed on cardiac telemetry monitoring and continuous pulse oximetry monitoring. EKG was ordered and interpreted. I reviewed the patient's EMR, the patient was just admitted to the hospital on December 09 for atypical right sided chest pain. The patient had a CT pulmonary angiogram that was negative for pulmonary embolism, chest x-ray that was unremarkable, and nuclear medicine myocardial perfusion scan which revealed an old inferior infarct and global hypokinesis, but no acute ischemia. The patient's troponins were negative at that time. The patient had a thorough workup for her chest pain at that time. The patient' s labs are unremarkable. The patient's potassium is noted be 2.5, was replaced orally and intravenously. CT the brain was negative for acute hemorrhage. Patient continues to have blurry vision, does not appear to be true amaurosis fugax, however, could be acute TIA/CVA. Therefore, patient was administered aspirin and will be 23 hour observation for TIA workup. The patient has [employer] and sees Dr. Richardson, therefore, [facility] were paged for 23 hour observation. Physician Communication Physician Communication [facility] were paged for 23 hour observation. Diagnosis Primary Impression: Blurry vision, right eye Additional Impression: Hypokalemia Admitting Information Admitting Physician Requests: Observation Condition: Stable Paddy Simons MD Dec 16, 2016 12:08
[2016-12-16 12:39] LABS: BICARBONATE 20.8 MEQ/L (21.0-32.0); MAGNESIUM 0.9 MG/DL (1.5-2.5); TOTAL BILIRUBIN ADULT 0.3 MG/DL (0.2-1.0)
--- NOTE | 2016-12-16 12:41 | RADRPT ---
EXAM DATE/TIME: 12/16/2016 11:59 [facility] COMPARISON: CHEST SINGLE AP, December 09, 2016, 14:31. INDICATIONS : Short of breath, breast pain and pain behind breasts. MEDICAL HISTORY : Shingles. Congestive heart failure. Hepatitis B. spinal stenosis, pulmonary embolus, phlebitis SURGICAL HISTORY : right shoulder, knees, back ENCOUNTER: Initial ACUITY: 1 day PAIN SCORE: 4/10 LOCATION: Bilateral chest FINDINGS: Single AP view of the chest. The lungs are clear. Moderate cardiac silhouette enlargement unchanged.. No evidence of pleural effusion or pneumothorax. Right shoulder prosthesis again seen. CONCLUSION: Moderate cardiac silhouette enlargement. No other acute cardiopulmonary disease i dentified. Octavio Gurrola MD on December 16, 2016 at 12:38 Board Certified Radiologist. This report was verified electronically.
[2016-12-16 12:46] LABS: POTASSIUM 2.5 MEQ/L (3.5-5.1)
[2016-12-16] MEDS ORDERED: POTASSIUM CHLORIDE 20 MEQ CONTROLLED RELEASE TAB PO ONE (13:30)
--- NOTE | 2016-12-16 13:52 | RADRPT ---
EXAM DATE/TIME: 12/16/2016 13:27 [facility] COMPARISON: No previous studies available for comparison. INDICATIONS : Dizziness. RADIATION DOSE: 52.27 CTDIvol (mGy) MEDICAL HISTORY : Hypertension. Cardiovascular disease Congestive heart failure.COPD. SURGICAL HISTORY : None. ENCOUNTER: Initial ACUITY: 1 day PAIN SCALE: 0/10 LOCATION: cranial TECHNIQUE: Multiple contiguous axial images were obtained of the head. Using automated exposure control and adj ustment of the mA and/or kV according to patient size, radiation dose was kept as low as reasonably a chievable to obtain optimal diagnostic quality images. FINDINGS: CEREBRUM: The ventricles are normal for age. Focal hypodensity is identified in the globus pallidus bilaterally . No evidence of midline shift, mass lesion, hemorrhage or acute infarction. No extra-axial fluid co llections are seen. POSTERIOR FOSSA: Significant volume loss is identified. There is enlargement of the subarachnoid space surrounding the cerebellum especially the vermis. There does are focal intra-axial hypodensity or hemorrhage. EXTRACRANIAL: The visualized portion of the orbits is intact. SKULL: The calvaria is intact. No evidence of skull fracture. CONCLUSION: Cerebellar atrophic changes. Symmetric hypodensities in the globus pallidus which may represent prominent perivascular spaces. Old ischemic disease may also have the same appearance. No evidence of acute infarct, hemorrhage, mass or edema. Paresh Drake MD on December 16, 2016 at 13:48 Board Certified Radiologist. This report was verified electronically.
[2016-12-16] MEDS ORDERED: ASPIRIN 81 MG CHEW TAB CHEW ONE (14:00)
[2016-12-16] MEDS: POTASSIUM CHLOR 20 MEQ PREMIX 100 ML IV SCH ×2 (15:29→20:25)
[2016-12-16 16:00] LABS: INTERNATIONAL NORMALIZED RATIO 1.1 RATIO; PROTHROMBIN TIME - PATIENT 11.7 SEC (9.8-11.6)
[2016-12-16 16:03] LABS: APTT (PATIENT) 24.2 SEC (24.3-30.1)
[2016-12-16] MEDS: SODIUM CHLORIDE 0.9% FLUSH 5 ML FLUSH IVF PRN (16:44)
--- NOTE | 2016-12-16 16:59 | HHI.HP ---
[facility] Service [facility] Primary Care Physician Suzan Garcia MD Admission Diagnosis blurry vision with dizziness rule out TIA, hypokalemia Diagnoses: Chief Complaint: blurred vision, TIA Travel History International Travel<30 Days: No Contact w/Intl Traveler <30 Da: No Traveled to Known Affected Are: No History of Present Illness 66-year-old female with history of CHF with EF 2025 percent, nonischemic cardiomyopathy, hypertension, COPD, hypothyroidism, hepatitis B, postherpetic neuralgia, bipolar disorder, presents with acute onset of dizziness and right eye blurred vision today. The patient reports earlier today she was standing at the bus stop when she developed acute dizziness and right eye blurred/cloudy vision, then associated right sided chest pain/upper abdominal pain, and nausea/ vomiting. She reports many weeks of RUQ pain under the right breast, rated 8/10 , worse with movement, minimally relieved with Bengay ointment. The patient admits to poor appetite lately over the past week, as well as insomnia. She reports 9lbs weight loss this week. She currently complains of diffuse global headache. Denies any unilateral numbness/weakness. Denies any recent fever/ chills or urinary complaints. She has been out of many medications for 2 weeks including the spironolactone, depakote, bupropion, gabapentin, and levothyroxine. She dropped prescriptions off yesterday but has not yet picked up the refills. She has been taking her lisinopril and coreg. Review of Systems Constitutional: COMPLAINS OF: Dizziness, DENIES: Fever, Chills Endocrine: DENIES: Polydipsia, Polyphagia Eyes: COMPLAINS OF: Blurred vision, DENIES: Diplopia, Vision loss, Double Vision Ears, nose, mouth, throat: DENIES: Throat pain, Ear Pain, Odynophagia Respiratory: DENIES: Cough, Shortness of breath Cardiovascular: DENIES: Chest pain, Palpitations, Syncope, Dyspnea on Exertion , Lower Extremity Edema Gastrointestinal: COMPLAINS OF: Abdominal pain, Nausea, Vomiting, DENIES: Constipation, Diarrhea Genitourinary: DENIES: Urinary frequency, Urgency, Dysuria Musculoskeletal: DENIES: Back pain, Neck pain Integumentary: DENIES: Abnormal pigmentation, Pruritus, Rash Hematologic/lymphatic: DENIES: Bruising, Lymphadenopathy Immunologic/allergic: DENIES: Eczema, Urticaria Neurologic: COMPLAINS OF: Headache, DENIES: Abnormal gait, Localized weakness , Paresthesias, Seizures Psychiatric: DENIES: Anxiety, Depression Past Family Social History Past Medical History nonischemic cardiomyopathy CHF with EF 25% spinal stenosis hepatitis B bipolar disorder postherpetic neuralgia shingles HTN COPD hypothyroidism Past Surgical History Bilateral knee surgery Bilateral shoulder surgery Lumbar surgery at L4-5 Cholecystectomy Reported Medications Spironolactone 25 Mg Tab 25 Mg PO DAILY Levothyroxine (Levothyroxine Sodium) 25 Mcg Tab 25 Mcg PO DAILY Coreg (Carvedilol) 6.25 Mg Tab 6.25 Mg PO BID Lisinopril 20 Mg Tab 20 Mg PO DAILY Bupropion HCl ER 12 HR (Bupropion HCl) 150 Mg Tab 150 Mg PO BID Viread (Tenofovir Disoproxil Fumarate) 300 Mg Tab 300 Mg PO DAILY Gabapentin 300 Mg Cap 600 Mg PO TID Seroquel (Quetiapine Fumarate) 50 Mg Tab 50 Mg PO HS Valproic Acid 250 Mg Cap 500 Mg PO DAILY Allergies: Coded Allergies: No Known Allergies (Unverified , 12/09/16) Active Ordered Medications Current Medications Medications (Trade) Dose Ordered Sig/Keny Route Start Time Stop Time Status Last Admin IV Flush 2 ml 2 ml UNSCH PRN IVF 12/16/16 11:45 Sodium Chloride 1,000 ml @ 100 mls/hr Q10H ONCE IV 12/16/16 11:36 12/16/16 21:35 12/16/16 13:21 (KCl 20 Meq Premix Inj) 100 ml @ 50 mls/hr Q2H IV 12/16/16 13:30 12/16/16 17:29 12/16/16 15:29 Family History Father with TX, age 72 Mother with CVA age 87 Social History Tobacco - smoked for 1 year around age 53, quit Alcohol - denies Illicit drug use - denies Physical Exam Vital Signs Vital Signs Date Time Temp Pulse Resp B/P Pulse Ox O2 Delivery O2 Flow Rate FiO2 12/16/16 11:30 76 16 140/82 93 Physical Exam GENERAL: Well-nourished, well-developed female patient in NAD. SKIN: Warm and dry. No rash. HEAD: Normocephalic. Atraumatic. EYES: Pupils equal and round. No scleral icterus. No injection or drainage. Funduscopic exam of left and right eye reveal cloudy lens consistent with cataracts. ENT: No nasal bleeding or discharge. Mucous membranes pink and moist. NECK: Supple. Trachea midline. CARDIOVASCULAR: Regular rate and rhythm. S1, S2 noted. No murmur appreciated. RESPIRATORY: No accessory muscle use. Clear to auscultation. Breath sounds equal bilaterally. GASTROINTESTINAL: Abdomen soft, non-tender, nondistended. Normoactive bowel sounds x4. MUSCULOSKELETAL: No obvious deformities. Extremities without clubbing, cyanosis , or edema. NEUROLOGICAL: Awake and alert. No obvious cranial nerve deficits. Motor grossly within normal limits. 5/5 muscle strength in bilateral upper and lower extremities. Normal speech. PSYCHIATRIC: Appropriate mood and affect; insight and judgment normal. Laboratory Laboratory Tests Test 12/16/16 12/16/16 12/16/16 11:53 12:00 15:29 White Blood Count 7.6 Red Blood Count 4.16 Hemoglobin 13.2 Hematocrit 39.6 Mean Corpuscular Volume 95.3 Mean Corpuscular Hemoglobin 31.9 Mean Corpuscular Hemoglobin 33.4 Concent Red Cell Distribution Width 13.7 Platelet Count 239 Mean Platelet Volume 7.3 Neutrophils (%) (Auto) 64.6 Lymphocytes (%) (Auto) 26.0 Monocytes (%) (Auto) 6.4 Eosinophils (%) (Auto) 2.0 Basophils (%) (Auto) 1.0 Neutrophils # (Auto) 4.9 Lymphocytes # (Auto) 2.0 Monocytes # (Auto) 0.5 Eosinophils # (Auto) 0.2 Basophils # (Auto) 0.1 CBC Comment DIFF FINAL Differential Comment Sodium Level 147 Potassium Level 2.5 Chloride Level 120 Carbon Dioxide Level 20.8 Anion Gap 6 Blood Urea Nitrogen 7 Creatinine 0.70 Estimat Glomerular Filtration 83 Rate Random Glucose 100 Calcium Level 5.7 Protein Corrected Calcium 7.0 Magnesium Level 0.9 Total Bilirubin 0.3 Aspartate Amino Transf 12 (AST/SGOT) Alanine Aminotransferase 14 (ALT/SGPT) Alkaline Phosphatase 57 Total Creatine Kinase 44 Troponin I 0.04 Total Protein 4.2 Albumin 2.1 B-Type Natriuretic Peptide 765 Prothrombin Time 11.7 Prothromb Time International 1.1 Ratio Activated Partial 24.2 Thromboplast Time Result Diagram: 12/16/16 1153 12/16/16 1153 Imaging Last Impressions Head CT 12/16/16 1136 Signed Impressions: Service Date/Time: Friday, December 16, 2016 13:27 - CONCLUSION: Cerebellar atrophic changes. Symmetric hypodensities in the globus pallidus which may represent prominent perivascular spaces. Old ischemic disease may also have the same appearance. No evidence of acute infarct, hemorrhage, mass or edema. Paresh Drake MD Chest X-Ray 12/16/16 1136 Signed Impressions: Service Date/Time: Friday, December 16, 2016 11:59 - CONCLUSION: Moderate cardiac silhouette enlargement. No other acute cardiopulmonary disease identified. Octavio Gurrola MD Assessment and Plan Assessment and Plan 66-year-old female with history of CHF with EF 2025 percent, nonischemic cardiomyopathy, hypertension, COPD, hypothyroidism, hepatitis B, postherpetic neuralgia, bipolar disorder, presents with acute onset of dizziness and right eye blurred vision today. TIA: suspected, with acute R eye blurred vision and dizziness. Head CT images reviewed, showed cerebellar atrophic changes, symmetric hypodensities in the globus pallidus which may represent prominent perivascular spaces; old ischemic disease may also have same appearance; no acute infarct/hemorrhage/mass/edema. Neuro checks. Monitor on telemetry. Check carotid U/S, Echo. Consult neurology. PT/OT/ST consult. R Eye Blurred Vision: suspect related to TIA however consult ophthalmology for further evaluation. Right Sided Abdominal/Chest Pain: has recently been evaluated in [facility], nuclear stress test 12/10/16 showed fixed defect at the apex most likely old infarct; no evidence to suggest ischemic myocardial changes; diffuse global hypokinesis with EF 25%. CTPA 12/09/16 negative for PE. Possibly related to postherpetic pain, continue gabapentin. Rule out ACS with serial troponins/EKGs. Hypernatremia: Na 147, likely related to hypovolemia with dehydration. Give IVF. Repeat BMP in the am. Hypokalemia: K 2.5, likely secondary to dehydration with poor oral intake. S/p IV Kcl bolus and po KCl replacement. Repeat BMP in the am. Hypomagnesemia: Mag 0.9, will give IV Mag Sulfate x2. Repeat Mag in the am. Hypocalcemia: PCC 7.0, likely secondary to poor oral intake. Give IV Calcium Gluconate 1G x1 now. Repeat BMP in the am. Metabolic Acidosis: likely secondary to dehydration and poor oral intake. With multiple electrolyte abnormalities as above. Give IVF. Repeat labs in the am. Moderate Protein Calorie Malnutrition: patient admits to recent poor oral intake x1 week with weight loss. Protein 4.2 and Albumin 2.1. Bipolar Disorder: chronic, continue patient's depakote, bupropion. Systolic CHF with Nonischemic Cardiomyopathy: chronic, continue patient's home meds including BB, ACEi, spironolactone. All other medical conditions stable, continue home medications as appropriate. DVT Prophylaxis: teds/SCDs Written by Radha Pena, acting as scribe for Dr. Lopez on 12/16/16 at 16: 58. Discussed Condition With Patient, ER Attending Statement The documentation accurately reflects the work performed [id number] by me on at 16:58. Radha Pena PA-C Dec 16, 2016 16:59 Satish Harry MD Dec 20, 2016 14:00
[2016-12-16] MEDS ORDERED: ENALAPRILAT 1.25 MG/ML VIAL IV PRN (18:45)
[2016-12-16 18:48] LABS: BACTERIA, URINE OCC /hpf; BLOOD, URINE NEG (NEG); COMMENT (UR) CULT NOT INDICATED; CULTURE IF INDICATED CULT NOT INDICATED; GLUCOSE,URINE NEG (NEG); HYALINE CAST, URINE 11 /lpf (RARE); KETONE, URINE NEG (NEG); MUCUS URINE FEW /lpf (OCC); SQUAMOUS EPITHELIAL CELL URINE 14 /hpf (0-5); URINE COLOR YELLOW (YELLW/STRAW)
[2016-12-16 18:49] LABS: NITRITE,URINE POS (NEG)
--- NOTE | 2016-12-16 18:59 | MB ---
cc: TEGAN CASH MD DATE OF CONSULTATION: 12/16/2016. HISTORY OF PRESENT ILLNESS: The patient is a 66-year-old female who reports an acute episode approximately seven hours ago of acute dizziness and right eye (versus perhaps right hemifield?) blurring of vision with some abdominal pain, nausea, vomiting and apparent loss of consciousness. Seeing her seven hours later at the beside in the emergency room, she still complains of some mild blurry vision in her right eye. PAST MEDICAL HISTORY: 1. Congestive heart failure. 2. Hepatitis b. 3. Hypertension. 4. COPD. PAST SURGICAL HISTORY: See chart. ALLERGIES: See chart. MEDICATIONS: See chart. PHYSICAL EXAMINATION: The physical examination is limited to the eyes and ocular adnexa. Visual acuity using a hand-held near card with presbyopic correction is about 20/50 on the right and 20/30 on the left. Pupils are equally round and there is definitely no Miki-Patience pupil. Ocular motility is full. Confrontation and visual mora appear to be full at the bedside. Penlight examination of the anterior segments shows obvious cataracts in each eye, right worse than left. Funduscopic examination shows no obvious acute pathology such as retinal detachment, retinal artery or retinal vein occlusion. IMPRESSION: Acute subjective decreased vision in the right eye (again versus perhaps right hemifield?). Bedside ocular examination is basically normal except for bilateral cataracts. The eye examination does not reveal at this point an obvious source of her visual acuity or of her vision change on the right. This may actually represent a TIA with some right hemianoptic field defect rather than actually right eye. Her confrontation visual mora are normal but that is certainly not terribly reliable at the bedside. CT scan apparently showed no acute intracranial pathology. PLAN: I have asked the patient to contact me for followup in the morning on Monday. MD ARGENTINA Gonzales/SERVANDO /6:42 PM /6:54 PM
[2016-12-16] MEDS ORDERED: CALCIUM GLUCONATE INJ 1 GM in SODIUM CHLORIDE 0.9% INJ 100 ML IV ONE (19:00)
[2016-12-16] MEDS: MAGNESIUM SULFATE 1 GM PREMIX 100 ML IV SCH ×2 (19:48→21:15)
[2016-12-16] MEDS ORDERED: POTASSIUM CHLOR 20 MEQ PREMIX 100 ML ONE (20:19)
[2016-12-16] MEDS: NS + KCL 20 MEQ INJ 1,000 ML IV SCH (20:26)
--- NOTE | 2016-12-16 20:47 | RADRPT ---
EXAM DATE/TIME: 12/16/2016 20:00 [facility] COMPARISON: No previous studies available for comparison. INDICATIONS : Transient ischemic attack. MEDICAL HISTORY : Hypothyroidism. Chronic obstructive pulmonary disease. Congestive heart failure. Cerebrovascular acci dent. Hypertension. . Arthritis. Spinal stenosis. Deteriorated disc disease. Gallbladder dis ease. Bipolar disorder. Hepatitis B. SURGICAL HISTORY : Tubal ligation. Bilateral knee surgery. Bilateral shoulder surgery. Back surgery. ENCOUNTER: Initial ACUITY: 1 day PAIN SCORE: 0/10 LOCATION: Bilateral neck PEAK SYSTOLIC VELOCITIES (cm/sec): ICA/CCA RATIO: Right: 1.6 Left: 1.5 ICA: Right: 74 Left: 75 CCA: Right: 46 Left: 52 ECA: Right: 53 Left: 48 VERTEBRAL: Right: 41 antegrade Left: 33 antegrade Elevated flow velocities and ICA/CCA ratios have been found to correlate with increased degrees of vessel stenosis, calculated as percentage of diameter relative to a normal segment of distal ICA/CCA FINDINGS: Antegrade flow is seen in both vertebral arteries. There is mild atherosclerotic plaquing at the orig in of both ICAs without any significant stenosis. CONCLUSION: No evidence for hemodynamically significant stenosis. Stephanie Rivera MD on December 16, 2016 at 20:45 Board Certified Radiologist. This report was verified electronically.
[2016-12-16] MEDS ORDERED: GABAPENTIN 100 MG CAP PO ONE (21:00)
[2016-12-16] MEDS: QUEtiapine FUMARATE 25 MG TAB PO SCH (21:15)
[2016-12-16] MEDS: CARVEDILOL 6.25 MG TAB PO SCH (21:24)
[2016-12-16] MEDS: buPROPion HCL 150 MG SUSTAINED RELEASE TAB PO SCH (23:35)
[2016-12-17] VITALS (12 sets, daily range): BP systolic 116–156; BP diastolic 71–97; PULSE 54–156; RESP 16–20; TEMP 96.3–98; O2SAT 95–98
[2016-12-17] MEDS ORDERED: ACETAMINOPHEN 325 MG TAB PO ONE (04:15)
[2016-12-17] MEDS: LEVOTHYROXINE SODIUM 25 MCG TAB PO SCH (04:25)
[2016-12-17] MEDS: NS + KCL 20 MEQ INJ 1,000 ML IV SCH (04:26)
[2016-12-17 05:47] LABS: AUTOMATED NEUTROPHIL # 3.3 TH/MM3 (1.8-7.7); BASOPHIL # 0.1 TH/MM3 (0-0.2); BASOPHIL % 1.1 % (0.0-2.0); EOSINOPHIL # 0.4 TH/MM3 (0-0.4); EOSINOPHIL % 5.1 % (0.0-4.0); HEMATOCRIT 36.5 % (35.0-46.0); HEMO FLAGS DIFF FINAL; LYMPH % 39.3 % (9.0-44.0); LYMPHOCYTE # 2.7 TH/MM3 (1.0-4.8); MEAN CELL VOLUME 94.4 FL (80.0-100.0); MEAN CORPUSCULAR HEMOGLOBIN 32.1 PG (27.0-34.0); MONO % 6.8 % (0.0-8.0); NEUT % 47.7 % (16.0-70.0); PLATELET COUNT 188 TH/MM3 (150-450); RED BLOOD COUNT 3.87 MIL/MM3 (4.00-5.30); RED CELL DISTRIBUTION WIDTH 13.8 % (11.6-17.2); WHITE BLOOD COUNT 6.9 TH/MM3 (4.0-11.0)
[2016-12-17 06:17] LABS: BICARBONATE 24.7 MEQ/L (21.0-32.0); HDL CHOLESTEROL 39.9 MG/DL (40.0-60.0); POTASSIUM 4.8 MEQ/L (3.5-5.1)
[2016-12-17] MEDS: SPIRONOLACTONE 25 MG TAB PO SCH (10:35)
[2016-12-17] MEDS: buPROPion HCL 150 MG SUSTAINED RELEASE TAB PO SCH ×2 (10:35→21:04)
[2016-12-17] MEDS: VALPROIC ACID 250 MG CAP PO SCH (10:35)
[2016-12-17] MEDS: GABAPENTIN 300 MG CAP PO SCH ×3 (10:36→19:32)
[2016-12-17] MEDS: ASPIRIN 81 MG CHEW TAB PO SCH (10:36)
[2016-12-17] MEDS: LISINOPRIL 20 MG TAB PO SCH (10:36)
[2016-12-17] MEDS: CARVEDILOL 6.25 MG TAB PO SCH ×2 (10:37→21:04)
--- NOTE | 2016-12-17 10:37 | RADRPT ---
EXAM DATE/TIME: 12/17/2016 10:02 [facility] COMPARISON: CT BRAIN W/O CONTRAST, December 16, 2016, 13:27. INDICATIONS : Dizziness. MEDICAL HISTORY : None. SURGICAL HISTORY : Orthopaedic ENCOUNTER: Initial ACUITY: 1 day PAIN SCORE: 0/10 LOCATION: cranial TECHNIQUE: Multiplanar, multisequence MRI of the brain was performed without contrast. FINDINGS: CEREBRUM: Symmetric T2 bright abnormality seen within the globus pallidus/basal ganglia bilaterally. The ventri cles are normal for age. No evidence of midline shift, mass lesion, hemorrhage or acute infarction. No extraaxial fluid collections are seen. The pituitary gland and suprasellar cistern are normal in configuration. WHITE MATTER: No significant signal abnormalities are seen in the white matter. POSTERIOR FOSSA: The cerebellum and brainstem are intact. The 4th ventricle is midline. The cerebellopontine angle is unremarkable. The cerebellar tonsils are normal in position. DIFFUSION IMAGING: No focal areas of restricted diffusion are seen. No evidence of acute infarction. EXTRACRANIAL: The visualized portions of the orbits and paranasal sinuses are unremarkable. CONCLUSION: 1. No acute intracranial abnormality. 2. No acute infarction. 3. Symmetric T2 bright abnormalities within the basal ganglia bilaterally could be prominent vascular spaces versus less likely old lacunar infarcts. Amado Keys MD on December 17, 2016 at 10:34 Board Certified Radiologist. This report was verified electronically.
--- NOTE | 2016-12-17 10:39 | RADRPT ---
EXAM DATE/TIME: 12/17/2016 10:02 [facility] COMPARISON: No previous studies available for comparison. INDICATIONS : Dizziness. MEDICAL HISTORY : None. SURGICAL HISTORY : Orthopaedic ENCOUNTER: Initial ACUITY: 1 day PAIN SCORE: 0/10 LOCATION: cranial Please note a normal MRA of the brain does not entirely exclude the possibility of a small aneurysm, nor the possibility of distal intracranial vessel disease. TECHNIQUE: 3D time of flight MRA was performed. Source images, multiplanar STS MIP, and 3D volume MIP reconstru ctions were reviewed. FINDINGS: There is excellent visualization of the major intracranial arteries out to the second-order branch ve ssels. There is no evidence for aneurysm, vessel truncation or stenosis, and no evidence for vascula r malformation. Dominant left vertebral artery. Right vertebral artery not seen. Persistent cir culation both posterior cerebral arteries. Anterior communicating artery not seen. CONCLUSION: 1. No stenosis or aneurysm. 2. Normal variants as described above. 3. Nonvisualization of right vertebral artery likely ending in PICA. Amado Keys MD on December 17, 2016 at 10:36 Board Certified Radiologist. This report was verified electronically.
--- NOTE | 2016-12-17 11:57 | HHI.PR ---
Subjective Remarks Follow-up for TIA. No further transient neurological episodes overnight. The patient continues to report blurred vision in her right eye today, but states it has improved since yesterday. She also complains of right lower chest pain, chronic, unchanged, worse to touch. She states that she's had pain there since having shingles/year. She states that she's been without her gabapentin for the past 3 days prior to admission. Objective Vitals Vital Signs Date Time Temp Pulse Resp B/P Pulse Ox O2 Delivery O2 Flow Rate FiO2 12/17/16 08:14 80 156/97 12/17/16 08:11 156 150/88 12/17/16 08:09 96.6 63 18 145/76 96 12/17/16 04:00 58 12/17/16 03:35 97.6 54 20 144/84 98 12/17/16 02:25 63 16 142/79 95 Room Air 12/16/16 22:05 72 140/94 96 Room Air 12/16/16 19:10 69 18 139/93 95 Room Air Result Diagram: 12/17/16 0519 12/17/16 0519 Imaging Last Impressions Head Magnetic Resonance Angiography 12/17/16 0000 Signed Impressions: Service Date/Time: Saturday, December 17, 2016 10:02 - CONCLUSION: 1. No stenosis or aneurysm. 2. Normal variants as described above. 3. Nonvisualization of right vertebral artery likely ending in PICA. Amado Keys MD Brain MRI 12/17/16 0000 Signed Impressions: Service Date/Time: Saturday, December 17, 2016 10:02 - CONCLUSION: 1. No acute intracranial abnormality. 2. No acute infarction. 3. Symmetric T2 bright abnormalities within the basal ganglia bilaterally could be prominent vascular spaces versus less likely old lacunar infarcts. Amado Keys MD Head CT 12/16/16 1136 Signed Impressions: Service Date/Time: Friday, December 16, 2016 13:27 - CONCLUSION: Cerebellar atrophic changes. Symmetric hypodensities in the globus pallidus which may represent prominent perivascular spaces. Old ischemic disease may also have the same appearance. No evidence of acute infarct, hemorrhage, mass or edema. Paresh Drake MD Chest X-Ray 12/16/166 Signed Impressions: Service Date/Time: Friday, December 16, 2016 11:59 - CONCLUSION: Moderate cardiac silhouette enlargement. No other acute cardiopulmonary disease identified. Octavio Gurrola MD Carotid Artery Ultrasound 12/16/16 0000 Signed Impressions: Service Date/Time: Friday, December 16, 2016 20:00 - CONCLUSION: No evidence for hemodynamically significant stenosis. Stephanie Rivera MD Objective Remarks GENERAL: Well-developed well-nourished. In no acute distress. SKIN: Warm and dry. No lesions noted. HEENT: Normocephalic. Pupils equal and round and reactive to light. EOMs intact. Mucous membranes pink and moist. CARDIOVASCULAR: Regular rate and rhythm. No murmur appreciated. RESPIRATORY: No accessory muscle use. Clear to auscultation. Breath sounds equal bilaterally. GASTROINTESTINAL: Abdomen soft, non-tender, nondistended. Bowel sounds x4. MUSCULOSKELETAL: Right lower anterior rib TTP. No clubbing or cyanosis. No edema. NEUROLOGICAL: Awake and alert. No focal neurological deficits. Cranial nerves grossly intact. Moves upper and lower extremities spontaneously. Normal speech. Strength 5/5. PSYCHIATRIC: Appropriate mood and affect; insight and judgment fair to normal. A/P Assessment and Plan 66-year-old female with history of CHF with EF 2025 percent, nonischemic cardiomyopathy, hypertension, COPD, hypothyroidism, hepatitis B, postherpetic neuralgia, bipolar disorder, presents with acute onset of dizziness and right eye blurred vision today. TIA: suspected, with acute R eye blurred vision and dizziness. Images reviewed: Head CT showed cerebellar atrophic changes, symmetric hypodensities in the globus pallidus which may represent prominent perivascular spaces; old ischemic disease may also have same appearance; no acute infarct/ hemorrhage/mass/edema. Brain MRI showed no acute intracranial abnormality or infarction, symmetric T2 bright abnormalities in the basal ganglia, likely representing prominent vascular space. Head MRA showed no stenosis or aneurysm , normal variance, nonvisualization of right vertebral artery. Carotid ultrasound with no significant stenosis. -Neurology consulted, appreciate specialists input -Neuro checks. -Monitor on telemetry. -Echocardiogram pending. -PT/OT/ST consult. -Lipid panel essentially within normal limits. Hemoglobin A1c pending. R Eye Blurred Vision: suspect related to TIA however consulted ophthalmology for further evaluation. I also recommended outpatient follow-up. Right Sided Abdominal/Chest Pain: has recently been evaluated in [facility], nuclear stress test 12/10/16 showed fixed defect at the apex most likely old infarct; no evidence to suggest ischemic myocardial changes; diffuse global hypokinesis with EF 25%. CTPA 12/09/16 negative for PE. S/P cystectomy in the past. Suspect related to postherpetic pain, had stopped gabapentin recently, continue gabapentin. Rule out ACS with serial troponins/EKGs. Aspirin. Electrolyte derangement: Hypernatremia, hypokalemia, hypomagnesemia, hypocalcemia. Given IVF. Potassium replaced. Given IV magnesium. Give IV calcium. Sodium, potassium, calcium, magnesium all within normal limits today on review of labs. Monitor. Metabolic Acidosis: likely secondary to dehydration and poor oral intake. With multiple electrolyte abnormalities as above. Improved with IVF, DC. Moderate Protein Calorie Malnutrition: patient admits to recent poor oral intake x1 week with weight loss. Protein 4.2 and Albumin 2.1. Bipolar Disorder: chronic, continue patient's depakote, bupropion. Systolic CHF with Nonischemic Cardiomyopathy: chronic, continue patient's home meds including BB, ACEi, spironolactone. Caution with IVF. All other medical conditions stable, continue home medications as appropriate. DVT Prophylaxis: teds/SCDs Plan of care discussed with Dr. Lopez Discharge Planning Discharge planning pending neurology and rehabilitation recommendations. Mihir Castro Dec 17, 2016 11:57
[2016-12-17] MEDS: QUEtiapine FUMARATE 25 MG TAB PO SCH (21:04)
--- NOTE | 2016-12-17 21:12 | MB ---
cc: NAYA SMITH MD DATE OF CONSULTATION: 12/17/2016 REASON FOR CONSULTATION: Possible TIA / transient blurring of vision and dizziness. HISTORY OF PRESENT ILLNESS: Ms. Sevilla is a 66-year-old female with past medical history of congestive heart failure with ejection fraction of 20% to 25%, nonischemic cardiomyopathy, COPD, hypothyroidism, hypertension, hepatitis B, post-herpetic neuralgia on gabapentin, bipolar disorder who presented with an episode of acute onset of dizziness and right eye blurred vision. The patient describes her vision change as, "I suddenly lost vision on my right eye and it has cleared up since then but its not back to normal". Ophthalmology assessed the patient and they diagnosed her with a cataract. The patient states that she has had right ear ringing. She blacked out, fell on the ground. She denies any foaming, tongue biting, loss of bladder or bowel and denies any postictal confusional state. The patient states that she has a history of PE and she was on warfarin but not at this time. The patient states that she discontinued taking gabapentin a week ago and then she started on a different dose of gabapentin and is curious to know whether gabapentin could precipitate this episode. The patient denies any speech difficulty, double vision, weakness of an extremity or convulsion during the episode. REVIEW OF SYSTEMS: A twelve-point review of systems was negative except as stated in the history of present illness. PAST MEDICAL HISTORY: 1. Cardiomyopathy. 2. Congestive heart failure with ejection fraction of 20% to 25%. 3. Spinal stenosis. 4. Hepatitis B. 5. Bipolar disorder. 6. Post-herpetic neuralgia / shingles. 7. Hypertension. 8. COPD. 9. Hypothyroidism. PAST SURGICAL HISTORY: 1. Bilateral knee surgery. 2. Bilateral shoulder surgery. 3. Lumbar surgery L4-5. 4. Cholecystectomy. ALLERGIES: NO KNOWN ALLERGIES. FAMILY HISTORY: Her father with myocardial infarction at age 72. Mother with a stroke at age 87. SOCIAL HISTORY: Smoked for one year around the age of 23 and then quit. Denies alcohol or recreational drug use. PHYSICAL EXAMINATION: GENERAL: A good historian, awake, alert, pleasant. HEAD, EYES, EARS, NOSE, THROAT: Normocephalic and atraumatic. Blurred vision on the right side. Intact hearing. NECK: The neck is supple. Trachea is midline. No signs of meningeal irritation. CARDIOVASCULAR: Regular rate and rhythm. RESPIRATORY: Clear to auscultation. No wheezes. MUSCULOSKELETAL: Moves all extremities equally. No cyanosis, clubbing or edema. NEUROLOGICAL EXAMINATION: Awake, alert and oriented to time, person and place. No speech difficulty. CRANIAL NERVES: Intact II through XII. Decreased visual acuity on the right eye. Visual mora are normal. MOTOR SYSTEM EXAMINATION: 5/5 bilateral and symmetrical. No abnormal movements. Normal tone. CEREBELLAR SYSTEM: Cerebellar signs are bilateral and symmetrical with normal [id number] and [id number]. REFLEXES: 2+ in the upper extremities with bilateral finger flexion and spread of brachioradialis reflex. Bilateral lower extremities 2+ bilateral. Plantars are downgoing. SENSORY: Sensation is intact bilateral and symmetrical throughout to pain and temperature. PSYCHIATRIC: Appropriate mood and behavior. Insight and judgment normal. No hallucinations. LABS: White blood cells 4.6, hemoglobin 13.2, platelet count 239,000. Sodium 147, potassium 2.5, chloride 120, anion gap 6, BUN 7, creatinine 0.7. DIAGNOSTIC IMAGING: - Head CT scan without contrast revealed cerebellar atrophic changes, symmetric hypodensities at the globus pallidus which may represent prominent perivascular spaces, although ischemic disease may also have the same appearance. No evidence of acute infarct, hemorrhage, mass or edema. - Carotid ultrasound with no evidence of hemodynamically significant stenosis. - Head MRA with no stenosis or aneurysm, normal variants, atypical appearance, nonvisualization of the right ventricular artery likely ending in the PICA. - Brain MRI without contrast with no acute intracranial abnormality and no acute infarction, symmetric T2 abnormality within the basal ganglia bilaterally. This could be prominent vascular spaces versus less likely old lacunar infarction. DIAGNOSTIC IMPRESSION: 1. TIA, likely of cardioembolic origin due to the ischemic cardiomyopathy with very low ejection fraction. 2. Dizziness. PLAN: 1. Aspirin 81 milligrams daily. 2. Ophthalmology consultation appreciated. 3. Physical therapy and occupational therapy consultations are appreciated. 4. DVT prophylaxis with SCDs. 5. GI prophylaxis. Thank you for the opportunity to participate in the care of your patient. The patient may follow up with neurology as an outpatient. MD BETSEY Armenta/SERVANDO /8:28 PM /8:53 PM MTDSpencer
[2016-12-17] MEDS ORDERED: MORPHINE SULFATE 4 MG/ML INJ IV PUSH ONE (21:45)
--- NOTE | 2016-12-17 22:23 | RADRPT ---
EXAM DATE/TIME: 12/17/2016 21:53 [facility] COMPARISON: No previous studies available for comparison. INDICATIONS : Right Sided Pain MEDICAL HISTORY : Shingles. Congestive heart failure. Hepatitis B. spinal stenosis, pulmonary embolus, phlebitis SURGICAL HISTORY : right shoulder, knees, back ENCOUNTER: Initial ACUITY: 1 day PAIN SCORE: 4/10 LOCATION: Right upper quadrant abdomen FINDINGS: Supine view of the abdomen was performed. Bowel gas pattern is nonspecific without evidence for obstr uction or free air. There is previous fusion lower lumbar spine. CONCLUSION: 1. No acute findings. Con Hill MD on December 17, 2016 at 22:15 Board Certified Radiologist. This report was verified electronically.
[2016-12-18 03:57] VITALS: BP 133/87; PULSE 65; RESP 20; TEMP 97.6; O2SAT 96
[2016-12-18] MEDS: LEVOTHYROXINE SODIUM 25 MCG TAB PO SCH (05:41)
[2016-12-18 05:55] LABS: BICARBONATE 27.3 MEQ/L (21.0-32.0); MAGNESIUM 1.8 MG/DL (1.5-2.5); POTASSIUM 4.6 MEQ/L (3.5-5.1)
[2016-12-18 05:59] LABS: HEMATOCRIT 38.3 % (35.0-46.0); MEAN CELL VOLUME 94.3 FL (80.0-100.0); MEAN CORPUSCULAR HEMOGLOBIN 31.6 PG (27.0-34.0); MEAN CORPUSCULAR HGB CONC 33.5 % (32.0-36.0); PLATELET COUNT 176 TH/MM3 (150-450); RED BLOOD COUNT 4.06 MIL/MM3 (4.00-5.30); RED CELL DISTRIBUTION WIDTH 13.6 % (11.6-17.2); REVIEW FLAG FINAL; WHITE BLOOD COUNT 7.3 TH/MM3 (4.0-11.0)
[2016-12-18 07:58] VITALS: BP 144/90; PULSE 63; RESP 18; TEMP 97.1; O2SAT 97
[2016-12-18 09:39] LABS: HEMOGLOBIN A1a 1.6 %; HEMOGLOBIN A1b 0.8 %; HEMOGLOBIN Ao 85.4 %; HEMOGLOBIN LA1C 1.6 %; HEMOGLOBIN P3 3.8 %
[2016-12-18] MEDS: VALPROIC ACID 250 MG CAP PO SCH (10:04)
[2016-12-18] MEDS: buPROPion HCL 150 MG SUSTAINED RELEASE TAB PO SCH (10:04)
[2016-12-18] MEDS: LISINOPRIL 20 MG TAB PO SCH (10:05)
[2016-12-18] MEDS: GABAPENTIN 300 MG CAP PO SCH ×2 (10:05→14:18)
[2016-12-18] MEDS: CARVEDILOL 6.25 MG TAB PO SCH (10:05)
[2016-12-18] MEDS: ASPIRIN 81 MG CHEW TAB PO SCH (10:06)
[2016-12-18] MEDS: SODIUM CHLORIDE 0.9% FLUSH 5 ML FLUSH IVF PRN (10:06)
[2016-12-18] MEDS: SPIRONOLACTONE 25 MG TAB PO SCH (10:06)
--- NOTE | 2016-12-18 12:13 | EC ---
Study Study Date:12/18/2016 STUDY CONCLUSIONS SUMMARY - Left ventricle: The cavity size was dilated. Wall thickness was normal. Systolic function was normal. The estimated ejection fraction was in the range of 15% to 20%. Diffuse hypokinesis. Doppler parameters are consistent with abnormal left ventricular relaxation (grade 1 diastolic dysfunction). - Aortic valve: Trace regurgitation. Valve area: 1.81cm^2(VTI). Valve area: 1.92cm^2 (Vmax). - Mitral valve: Mildly calcified annulus. Mild regurgitation. - Pulmonary arteries: PA peak pressure: 34mm Hg (S). If LV function is below 40, please consider prescribing an ACEI or ARB or document rationale for non-use. PROCEDURE DATA STUDY STATUS: Elective. Procedure: Transthoracic echocardiography. Image quality was adequate. Scanning was performed from the parasternal, apical, and subcostal acoustic windows. Study completion: The patient tolerated the procedure well. Transthoracic echocardiography. M-mode, complete 2D, complete spectral Doppler, and color Doppler. Height: Height: 62in. Weight: Weight: 187.6lb. Body mass index: BMI: 34.4kg/m^2. Body surface area: BSA: 1.86m^2. Patient status: Inpatient. CARDIAC ANATOMY LEFT VENTRICLE: The cavity size was dilated. Wall thickness was normal. Systolic function was normal. The estimated ejection fraction was in the range of 15% to 20%. Diffuse hypokinesis. Doppler parameters are consistent with abnormal left ventricular relaxation (grade 1 diastolic dysfunction). AORTIC VALVE: Normal thickness leaflets. Doppler: Transvalvular velocity was within the normal range. There was no stenosis. Trace regurgitation. Valve area: 1.81cm^2(VTI). Indexed valve area: 0.97cm^2/m^2 (VTI). Valve area: 1.92cm^2 (Vmax). Indexed valve area: 1.03cm^2/m^2 (Vmax). Mean gradient: 2mm Hg (S). AORTA: Aortic root: The aortic root was normal in size. MITRAL VALVE: Mildly calcified annulus. Doppler: Transvalvular velocity was within the normal range. There was no evidence for stenosis. Mild regurgitation. LEFT ATRIUM: The atrium was normal in size. RIGHT VENTRICLE: The cavity size was normal. Wall thickness was normal. PULMONIC VALVE: Poorly visualized. Doppler: Transvalvular velocity was within the normal range. There was no evidence for stenosis. No regurgitation. TRICUSPID VALVE: Structurally normal valve. Doppler: Transvalvular velocity was within the normal range. Trace to mild regurgitation. PULMONARY ARTERY: The main pulmonary artery was normal-sized. Systolic pressure was within the normal range. RIGHT ATRIUM: The atrium was normal in size. PERICARDIUM: There was no pericardial effusion. SYSTEMIC VEINS: Inferior vena cava: The vessel was normal in size. Patient weight: 187.6lb _Ejection fraction:_ 65-75% _Fractional shortening:_ 32% up to 5Kg 5-11.5Kg 11.6-22.9Kg 23-45Kg 45-57Kg Aortic Root 7-13 <17 13-22 17-27 17-27 LA diam 6-13 <23 24-38 33-47 37-40 RVID 10-17 7-15 7-15 7-18 8-17 LVIDd 12-22 <32 24-38 33-47 37-40 LVPW 2-4 3-6 5-7 6-8 7-8 IVS 2-4 3-6 5-7 6-8 7-8 BASIC MEASUREMENTS ADULT NORMAL Left ventricle LV internal dimension, ED, chordal *71.3 mm 43-52 level, PLAX LV internal dimension, ES, chordal *67.3 mm 23-38 level, PLAX Fractional shortening, chordal level, *6 % >29 PLAX LV posterior wall thickness, ED 10.4 mm IVS/LVPW ratio, ED 1 <1.3 Ventricular septum Septal thickness, ED 10.4 mm Aortic valve Leaflet separation 18 mm 15-26 Aorta Root diameter, ED 36 mm Left atrium Anterior-posterior dimension 22 mm Anterior-posterior dimension index 1.18 cm/m^2 <2.2 BASIC MEASUREMENTS ADULT NORMAL Aortic valve Leaflet separation 18 mm 15-26 DOPPLER MEASUREMENTS ADULT NORMAL Main pulmonary artery Pressure, S *34 mm Hg =30 Aortic valve Peak velocity, S 100 cm/s Mean velocity, S 68.9 cm/s VTI, S 16.2 cm Mean gradient, S 2 mm Hg Valve area, VTI 1.81 cm^2 Valve area index, VTI 0.97 cm^2/m^2 Valve area, Vmax 1.92 cm^2 Valve area index, Vmax 1.03 cm^2/m^2 Mitral valve Peak E-wave velocity 55.8 cm/s Peak A-wave velocity 81.9 cm/s Peak E/A ratio 0.7 Tricuspid valve Regurgitant peak velocity 276 cm/s Peak RV-RA gradient, S 30 mm Hg Maximal regurgitant velocity 276 cm/s Systemic veins Estimated CVP 5 mm Hg Right ventricle RV pressure, S *35 mm Hg <30 Pulmonic valve Peak velocity, S 36.8 cm/s LEGEND: Mean values are shown as u=mean value. Asterisk (*) orosco values outside specified normal range. Prepared and signed by Raghav Ocampo [id number]
--- NOTE | 2016-12-18 12:17 | HHI.PR ---
Subjective Remarks Follow-up for vision changes and right flank pain. The patient continues to complain of acute on chronic pain beneath her right breast. Painful to touch. She denies any trauma that she knows of. No chest pain or shortness of breath. Objective Vitals Vital Signs Date Time Temp Pulse Resp B/P Pulse Ox O2 Delivery O2 Flow Rate FiO2 12/18/16 07:58 97.1 63 18 144/90 97 12/18/16 03:57 97.6 65 20 133/87 96 12/17/16 23:57 98.0 64 20 116/74 96 12/17/16 20:00 68 12/17/16 19:29 97.4 65 20 126/80 96 12/17/16 18:16 66 12/17/16 16:34 97.5 62 18 125/71 97 12/17/16 12:31 96.3 65 18 139/75 97 Result Diagram: 12/18/16 0523 12/18/16 0523 Imaging Last Impressions Head Magnetic Resonance Angiography 12/17/16 0000 Signed Impressions: Service Date/Time: Saturday, December 17, 2016 10:02 - CONCLUSION: 1. No stenosis or aneurysm. 2. Normal variants as described above. 3. Nonvisualization of right vertebral artery likely ending in PICA. Amado Keys MD Brain MRI 12/17/16 0000 Signed Impressions: Service Date/Time: Saturday, December 17, 2016 10:02 - CONCLUSION: 1. No acute intracranial abnormality. 2. No acute infarction. 3. Symmetric T2 bright abnormalities within the basal ganglia bilaterally could be prominent vascular spaces versus less likely old lacunar infarcts. Amado Keys MD Abdomen X-Ray 12/17/16 0000 Signed Impressions: Service Date/Time: Saturday, December 17, 2016 21:53 - CONCLUSION: 1. No acute findings. Con Hill MD Head CT 12/16/166 Signed Impressions: Service Date/Time: Friday, December 16, 2016 13:27 - CONCLUSION: Cerebellar atrophic changes. Symmetric hypodensities in the globus pallidus which may represent prominent perivascular spaces. Old ischemic disease may also have the same appearance. No evidence of acute infarct, hemorrhage, mass or edema. Paresh Drake MD Chest X-Ray 12/16/166 Signed Impressions: Service Date/Time: Friday, December 16, 2016 11:59 - CONCLUSION: Moderate cardiac silhouette enlargement. No other acute cardiopulmonary disease identified. Octavio Gurrola MD Carotid Artery Ultrasound 12/16/16 0000 Signed Impressions: Service Date/Time: Friday, December 16, 2016 20:00 - CONCLUSION: No evidence for hemodynamically significant stenosis. Stephanie Rivera MD Objective Remarks GENERAL: Well-developed well-nourished. In no acute distress. SKIN: Warm and dry. Well-healed shingles scars below the right breast. HEENT: Normocephalic. Pupils equal and round and reactive to light. EOMs intact. Mucous membranes pink and moist. CARDIOVASCULAR: Regular rate and rhythm. No murmur appreciated. RESPIRATORY: No accessory muscle use. Clear to auscultation. Breath sounds equal bilaterally. GASTROINTESTINAL: Abdomen soft, non-tender, nondistended. Bowel sounds x4. MUSCULOSKELETAL: Right lower anterior rib TTP. No clubbing or cyanosis. Trace edema. NEUROLOGICAL: Awake and alert. No focal neurological deficits. Cranial nerves grossly intact. Moves upper and lower extremities spontaneously. Normal speech. PSYCHIATRIC: Appropriate mood and affect; insight and judgment fair to normal. A/P Assessment and Plan 66-year-old female with history of CHF with EF 2025 percent, nonischemic cardiomyopathy, hypertension, COPD, hypothyroidism, hepatitis B, postherpetic neuralgia, bipolar disorder, presents with acute onset of dizziness and right eye blurred vision today. TIA: suspected, with acute R eye blurred vision and dizziness. Images reviewed: Head CT showed cerebellar atrophic changes, symmetric hypodensities in the globus pallidus which may represent prominent perivascular spaces; old ischemic disease may also have same appearance; no acute infarct/ hemorrhage/mass/edema. Brain MRI showed no acute intracranial abnormality or infarction, symmetric T2 bright abnormalities in the basal ganglia, likely representing prominent vascular space. Head MRA showed no stenosis or aneurysm , normal variance, nonvisualization of right vertebral artery. Carotid ultrasound with no significant stenosis. -Neurology consulted, recommended outpatient follow-up -Neuro checks. -Monitor on telemetry. -PT/OT/ST consult, would benefit from [facility]. -Lipid panel essentially within normal limits. Hemoglobin A1c 5.4. R Eye Blurred Vision: suspect related to TIA however consulted ophthalmology for further evaluation. Ophthalmology recommended outpatient follow-up. Right Sided Abdominal/Chest Pain: has recently been evaluated in [facility], nuclear stress test 12/10/16 showed fixed defect at the apex most likely old infarct; no evidence to suggest ischemic myocardial changes; diffuse global hypokinesis with EF 25%. CTPA 12/09/16 negative for PE. S/P cystectomy in the past. Suspect related to postherpetic pain, had stopped gabapentin recently, continue gabapentin. Ruled out ACS with serial troponins/EKGs. Aspirin. Check rib x- ray. Seems musculoskeletal, recommended pain control and outpatient PCP follow- up. Electrolyte derangement: Hypernatremia, hypokalemia, hypomagnesemia, hypocalcemia. Given IVF. Potassium replaced. Given IV magnesium. Give IV calcium. Sodium, potassium, calcium, magnesium all within normal limits now on review of labs. Monitor. Metabolic Acidosis: likely secondary to dehydration and poor oral intake. With multiple electrolyte abnormalities as above. Improved with IVF, DC. Moderate Protein Calorie Malnutrition: patient admits to recent poor oral intake x1 week with weight loss. Protein 4.2 and Albumin 2.1. Bipolar Disorder: chronic, continue patient's depakote, bupropion. Systolic CHF with Nonischemic Cardiomyopathy: chronic, continue patient's home meds including BB, ACEi. Caution with IVF. Dehydration: Creatinine slightly increased at 1.11 at time. Hold spironolactone. Repeat BMP in 2-3 days outpatient and follow-up with PCP. All other medical conditions stable, continue home medications as appropriate. DVT Prophylaxis: teds/SCDs Written by Mihir Castro, acting as scribe for Dr. Lopez on 12/18/16 at 12:16. Discharge Planning Follow-up results of rib x-ray Discharge patient to home with [facility] Condition on discharge: Improved Heart healthy Diet as tolerated Regular activity Rx written: BMP, aspirin, Percocet Follow-up with primary care physician and neurology Attending Statement The documentation accurately reflects the work performed [id number] by me on at 12:16. Mihir Castro Dec 18, 2016 12:17 Satish Harry MD Dec 26, 2016 22:46
--- NOTE | 2016-12-18 12:18 | HHI.FF ---
Face to Face Verification Diagnosis: (1) Non-ischemic cardiomyopathy (2) Hypertension (3) Post herpetic neuralgia (4) Hypothyroid (5) Bipolar disorder (6) Blurry vision, right eye (7) TIA (transient ischemic attack) Physical Therapy Order: Evaluate and Treat, Improve ambulation, Strength and gait training Home Health Nursing Order: Medical education Signs/symptoms of disease process CHF education Medication education-adverse effect Nursing assessment with vital signs I have seen patient Taylor Sevilla on 12/18/16. My clinical findings support the need for the requested home health care services because: Med compliance is questionable Limited ability to care for self Need for psychosocial assistance Impaired cognition/judgement I certify that my clinical findings support that this patient is homebound because: Unsteady gait/balance Need for psychosocial assistance Poor cardiac reserve Mihir Castro Dec 18, 2016 12:18
[2016-12-18] MEDS ORDERED: ASPI81CH CHEW (12:21)
--- NOTE | 2016-12-18 12:51 | EKG ---
Date Performed: 12/16/2016 Time Performed: 11:36:07 PTAGE: 66 years EKG: ECTOPIC ATRIAL RHYTHM WITH FIRST DEGREE AV BLOCK MARKED LEFT AXIS DEVIATION LEFT VENTRICULA R HYPERTROPHY AND ST-T CHANGE When compared to previous tracing, there are now anterior Ischemic buitrago ges present. ABNORMAL ECG PREVIOUS TRACING : 12/09/2016 20.51 DOCTOR: Jono Dotson Interpretating Date/Time 12/18/2016 12:50:52
--- NOTE | 2016-12-18 12:53 | EKG ---
Date Performed: 12/16/2016 Time Performed: 19:18:23 PTAGE: 66 years EKG: Sinus rhythm WITH FIRST DEGREE AV BLOCK WITH OCCASIONAL VENTRICULAR PREMATURE COMPLEXES BORDERLINE LEFT AXIS MARIAM ATION LEFT VENTRICULAR HYPERTROPHY AND ST-T CHANGE When compared to previous tracing, there is no sig nificant Change. ABNORMAL ECG PREVIOUS TRACING : 12/16/2016 11.36 DOCTOR: Jono Dotson Interpretating Date/Time 12/18/2016 12:51:42
--- NOTE | 2016-12-18 12:54 | EKG ---
Date Performed: 12/17/2016 Time Performed: 02:21:05 PTAGE: 66 years EKG: Sinus rhythm WITH FIRST DEGREE AV BLOCK POSSIBLE LEFT ATRIAL ENLARGEMENT MARKED LEFT AXIS DEVIATION LEFT VENTRICU LAR HYPERTROPHY AND ST-T CHANGE When compared to previous tracing, there is a first degree AV Block p resent. ABNORMAL ECG PREVIOUS TRACING : 12/16/2016 19.18 DOCTOR: Jono Dotson Interpretating Date/Time 12/18/2016 12:54:00
--- NOTE | 2016-12-18 13:04 | RADRPT ---
EXAM DATE/TIME: 12/18/2016 12:42 [facility] COMPARISON: No previous studies available for comparison. INDICATIONS : Right Rib pain, lower anterior ribs most painful. MEDICAL HISTORY : Shingles. Congestive heart failure. Hepatitis B. spinal stenosis, pulmonary embolus, phlebitis SURGICAL HISTORY : [facility]. right shoulder. knees. back ENCOUNTER: Subsequent ACUITY: 1 month PAIN SCORE: 7/10 LOCATION: Right Ribs. FINDINGS: Multiple views of the right ribs were performed. There is no evidence of displaced fracture. No gabbie tructive lesions or areas of periosteal thickening are seen. Cardiomegaly. Expiratory view of the ch est is negative for pneumothorax. The mediastinal structures are midline. Dextroscoliosis and degen erative changes. Degenerative changes both shoulders. Right humeral prosthesis. CONCLUSION: Unremarkable examination of the right ribs and chest. Amado Keys MD on December 18, 2016 at 13:02 Board Certified Radiologist. This report was verified electronically.
[2016-12-18] MEDS ORDERED: PERC5TAB12 PO (13:23)
[2016-12-18] MEDS ORDERED: ACETAMINOPHEN/HYDROcodone 325 MG/5 MG TAB PO ONE (13:30)
== END 2016-12-18 16:09 | disposition home or self-care (01) ==
LOC: NEPE 11:27 → NEDA 14:23 → NEDH 20:00 → NEPHCDU 12-17 02:56
PROVIDERS: ADMIT Hospitalist; ATTEND Hospitalist
DX: I42.9 Cardiomyopathy, unspecified (principal); I10 Essential (primary) hypertension; I50.20 Unspecified systolic (congestive) heart failure; E86.0 Dehydration; E87.6 Hypokalemia; E03.9 Hypothyroidism, unspecified; E86.1 Hypovolemia; E87.0 Hyperosmolality and hypernatremia; E83.42 Hypomagnesemia; E83.51 Hypocalcemia; E87.2 Acidosis; E44.0 Moderate protein-calorie malnutrition; B02.9 Zoster without complications; J44.9 Chronic obstructive pulmonary disease, unspecified; F31.9 Bipolar disorder, unspecified; H26.9 Unspecified cataract; Z79.01 Long term (current) use of anticoagulants; Z79.82 Long term (current) use of aspirin; Z86.711 Personal history of pulmonary embolism; Z86.73 Personal history of transient ischemic attack (TIA), and cerebral infarction without residual deficits; Z87.891 Personal history of nicotine dependence; Z90.49 Acquired absence of other specified parts of digestive tract; W19.XXXA Unspecified fall, initial encounter
CPT/HCPCS: 70450; 70544; 70551; 71010; 71101; 74000; 80048; 80053; 80061; 81001; 82550; 83036; 83735; 83880; 84484; 85025; 85027; 85610; 85730; 92610; 93005; 93306; 93880; 96361; 96374; 97162; 97166; 99285; G0378; G8987; G8988; G8996; G8997; G8998; J0610; J2270; J2405; J3475; J3480; J7030

== ENCOUNTER 2017-01-09 18:58 | Emergency (ER) | payer OTHER ==
[~2017-01-09] VITALS: Ht 157.5 cm; Wt 88.0 kg
[~2017-01-09 18:58] MED LIST changes: +ASPI81CH CHEW; +PERC5TAB12 PO; -SPIR25TA PO
[2017-01-09 19:15] VITALS: BP 103/44; PULSE 82; RESP 16; TEMP 97.6; O2SAT 96
--- NOTE | 2017-01-09 20:19 | PD ---
HPI Chief Complaint: Fall Time Seen by Provider: 20:17 Travel History International Travel<30 days: No Contact w/Intl Traveler<30days: No Traveled to known affect area: No History of Present Illness HPI 66-year-old white female presents to emergency Department by EMS with complaints of left foot pain. She states that she fell injuring her left foot last evening. She states that she lives by herself but has no friends to assist with transportation. She denies any injury to her head, neck or back. She states that she has chronic back pain with spinal stenosis. Denies any numbness, tingling or focal weakness. She states the pain is mild to moderate. She localizes it to the lateral aspect of her left foot. No palliative activity. Denies syncope. PFSH Past Medical History Arthritis: Yes Bipolar Disorder: Yes Anxiety: No Depression: Yes Cancer: No Cardiovascular Problems: Yes (HTN, CHF) Congestive Heart Failure: Yes COPD: Yes Cerebrovascular Accident: Yes Diabetes: No Diminished Hearing: No Genitourinary: No Hepatitis: Yes (b) Hypertension: Yes Implanted Vascular Access Dvce: No Musculoskeletal: Yes (SPINAL STENOSIS) Neurologic: No Psychiatric: Yes (bipolar) Reproductive: No Respiratory: Yes Integumentary: Yes (SHINGLES) Immunizations Current: Yes Thyroid Disease: Yes (hypo) Influenza Vaccination: No Menopausal: Yes : 2 Para: 2 Tubal Ligation: Yes Past Surgical History Abdominal Surgery: No Cardiac Surgery: No Section: No Ear Surgery: No Endocrine Surgery: No Eye Surgery: No Genitourinary Surgery: No Gynecologic Surgery: Yes Joint Replacement: Yes Neurologic Surgery: No Oral Surgery: Yes (teeth pulled) Thoracic Surgery: No Other Surgery: Yes (BILATERAL KNEE AND SHOULDER SURGERIES) Family History Family Myocardial Infarction: Yes (FATHER AT 72) Social History Alcohol Use: No Tobacco Use: No Substance Use: No Allergies-Medications (Allergen,Severity, Reaction): Coded Allergies: No Known Allergies (Unverified , 01/09/17) Reported Meds & Prescriptions Reported Meds & Active Scripts Active Percocet (Oxycodone-Acetaminophen) 5-325 mg Tab 1 Tab PO Q4H PRN Aspirin 81 Mg Chew 81 Mg CHEW DAILY Levothyroxine (Levothyroxine Sodium) 25 Mcg Tab 25 Mcg PO DAILY Coreg (Carvedilol) 6.25 Mg Tab 6.25 Mg PO BID Lisinopril 20 Mg Tab 20 Mg PO DAILY Reported Bupropion HCl ER 12 HR (Bupropion HCl) 150 Mg Tab 150 Mg PO BID Viread (Tenofovir Disoproxil Fumarate) 300 Mg Tab 300 Mg PO DAILY Gabapentin 300 Mg Cap 600 Mg PO TID Seroquel (Quetiapine Fumarate) 50 Mg Tab 50 Mg PO HS Valproic Acid 250 Mg Cap 500 Mg PO DAILY Review of Systems Except as stated in HPI: all other systems reviewed are Neg Physical Exam Narrative GENERAL: This is a well-nourished, well-developed patient, in no apparent distress. SKIN: No rashes, ecchymoses or lesions. Warm and dry. HEAD: Atraumatic. Normocephalic. EYES: PERRL, EOMI, no discharge or injection. No scleral icterus. EARS: Clear NOSE: Nasal turbinates appear normal. THROAT: Mucosa pink and moist. Airway patent. NECK: Trachea midline. supple, moves head freely. LUNGS: Clear to auscultation. CV: Regular in rhythm. ABDOMEN: Soft nontender. EXT: No clubbing cyanosis. Examination of left lower extremity reveals mild swelling and tenderness to the third, fourth, fifth metatarsal region. There is no ecchymosis. No erythema or warmth. The skin is intact. No pain in the toes, heel or Achilles. No pain in the ankle, knee or hip. Patient ambulates with a mildly antalgic gait. The right lower extremity as well as upper extremity is are without localizing bony tenderness Data Data Last Documented VS Vital Signs Date Time Temp Pulse Resp B/P Pulse Ox O2 Delivery O2 Flow Rate FiO2 01/09/17 19:15 97.6 82 16 103/44 96 Room Air Orders Foot, Complete ([id number]) (01/09/17 20:11) Ice/Cold Pack (01/09/17 20:11) Splint Or Brace Apply/Monitor (01/09/17 20:31) Acetamin-Hydrocod 325-5 Mg ([place] 5-325 (01/09/17 20:45) MDM Medical Decision Making Medical Screen Exam Complete: Yes Emergency Medical Condition: Yes Medical Record Reviewed: Yes Interpretation(s) Left foot: Positive fracture of the base of the fifth metatarsal. Differential Diagnosis MDM: High Differential diagnoses: Fracture, sprain, strain, dislocation, contusion, neurovascular injury Narrative Course X-ray reveals a fracture of the fifth metatarsal. Patient put in a cam walker. Lortab 5 by mouth. This is left foot fracture Diagnosis Primary Impression: Nondisplaced fracture of fifth left metatarsal bone Qualified Code: S92.355A - Closed nondisplaced fracture of fifth metatarsal bone of left foot, initial encounter Patient Instructions: General Instructions Additional Instructions: Rest. Elevation. Ice packs for the next 3 days. Cam Walker. Limited weightbearing. Medications as directed Follow-up with an orthopedist or director emergency department in one week. Return to the ER if any problems Med/Other Pt SpecificInfo: Prescription(s) given Scripts Hydrocodone-Acetaminophen (Lortab)5-325 Mg Tab1 Tab PO Q6H PRN (PAIN) #20 TAB Prov:Samantha Sanches MD 01/09/17 Disposition: 01 DISCHARGE HOME Condition: Stable Con [place] Jan 09, 2017 20:19
[2017-01-09] MEDS ORDERED: HYDR-3533 PO (20:32)
[2017-01-09] MEDS ORDERED: ACETAMINOPHEN/HYDROcodone 325 MG/5 MG TAB PO ONE (20:45)
--- NOTE | 2017-01-09 20:54 | RADRPT ---
EXAM DATE/TIME: 01/09/2017 20:23 [facility] COMPARISON: No previous studies available for comparison. INDICATIONS : Left foot pain and swelling after falling off bed. MEDICAL HISTORY : None. SURGICAL HISTORY : None. ENCOUNTER: Initial ACUITY: 1 day PAIN SCORE: 10/10 LOCATION: Left anterior foot. FINDINGS: A nondisplaced fracture is identified through the base of the fifth metatarsal. Bony structure utilizing tach. Minimal soft tissue swelling is apparent. CONCLUSION: Suspected nondisplaced fracture at the base of the fifth metatarsal. Paresh Drake MD on January 09, 2017 at 20:52 Board Certified Radiologist. This report was verified electronically.
== END 2017-01-09 22:00 | disposition home or self-care (01) ==
LOC: NEPB 18:58
DX: S92.355A Nondisplaced fracture of fifth metatarsal bone, left foot, initial encounter for closed fracture (principal); W19.XXXA Unspecified fall, initial encounter
CPT/HCPCS: 73630; 99283; L2114